=== PATIENT | female | born 1930 | race Two or more races ===

== ENCOUNTER 2016-10-25 18:32 | Emergency (ER) | payer OTHER ==
--- NOTE | 2016-10-25 18:35 | EDPHY ---
HPI/HX/ROS/PE/MDM Narrative: CHIEF COMPLAINT: Near syncope HPI: This patient is an 86-year-old female who presents to the Emergency Department via EMS after an episode of near syncope while eating dinner at 1630 today. The patient has been experiencing worsening cold-like symptoms over the past two days for which she was evaluated at [facility] at 1500 today; her primary care provider was suspicious of early pneumonia but did not start her on antibiotics. She took acetaminophen with codeine at 1600 today; apparently accidentally three times the prescribed normal dose. Following this, she began to feel overheated and dizzy. Family reports that she then appeared to slouch down in her seat and stopped responding to questions for 5-10 minutes, but she was breathing normally. At time of arrival, the patient reports feeling normal and is unsure why she is here. She denies any pertinent medical history; no cardiac disease or diabetes. REVIEW OF SYSTEMS: Aside from elements discussed in the HPI, a comprehensive 10-point review of systems was reviewed and is negative. PMH: Denies. SOCIAL HISTORY: Lives at home with family. Macedonian-speaking only. PHYSICAL EXAM: General:Patient is alert, in no acute distress. ENT:Eyes are normal to inspection. ENT inspection normal. Neck: Normal inspection. Full range of motion. Respiratory:No respiratory distress. Breath sounds normal bilaterally. Cardiovascular: Regular rate and rhythm. Strong peripheral pulses. Normal cap refill. Abdomen:The abdomen is nontender to palpation. There are no peritoneal signs. There are normal bowel sounds. Back: Normal to inspection. No tenderness to palpation. Skin: Normal color. No rash. Warm and dry. Extremities: Normal appearance. Full range of motion. Neuro: Oriented x3. Normal motor function. Normal sensory function. ED Course: 1833: Took EMS report at bedside. Vitals: BGL 134; normal sinus on monitor. History of weakness, flu-like symptoms over past 2-3 days. No additional medical history reported. 86-year-old female presents via EMS with apparent near syncope at 1630 today after the patient took an increased dose of 30mg acetaminophen with codeine. At time of arrival, she is asymptomatic. No significant findings on exam. I am most suspicious of an adverse reaction to the increased dosage of Tylenol with codeine. Plan for labs, EKG, and chest x-ray. EKG was ordered and interpreted by myself: normal sinus rhythm, rate 80; no ischemic changes. Please see [employer] system for official reading. Labs reviewed and are unremarkable. Troponin is negative. Chest x-ray is suggestive of possible early pneumonia in the left lower lobe. This is consistent with the primary care provider's diagnosis today. I discussed this with the patient's family as well as plan to treat with azithromycin. The patient has remained asymptomatic while in the ED and wishes to go home. She declines further testing. She will be discharged home in good condition with customary return precautions. MDM: This patient presents with near syncope which I think is likely secondary to taking too much codeine in the setting of recent illness and a hot trailer. There is no evidence of stroke, ACS or sepsis, and patient feels fine now. - Data Points Imaging Results: Imaging Impressions Chest X-Ray 10/25/16 18:35 Impression: 1. Interstitial infiltrate/pneumonia suspected left base. 2. Mild progression of compression fractures that appear to be at the T8 and L1 segment levels in this patient with history of osteoporosis. Findings discussed with Julien Amin MD at 20:54 hour, 10/25/2016. Imaging: Discussed imaging studies w/ call centre supervisor Radiologist (Possibly early pneumonia) Laboratory Results: Laboratory Results 10/25/16 18:57 10/25/16 18:57 10/25/16 10/25/16 18:57 18:57 WBC 8.79 10^3/uL 10^3/uL (3.80-9.50) RBC 4.16 10^6/uL L 10^6/uL (4.18-5.33) Hgb 14.4 g/dL g/dL (12.6-16.3) Hct 41.3 % % (38.0-47.0) MCV 99.3 fL fL (81.5-99.8) MCH 34.6 pg H pg (27.9-34.1) MCHC 34.9 g/dL g/dL (32.4-36.7) RDW 13.2 % % (11.5-15.2) Plt Count 250 10^3/uL 10^3/uL (150-400) MPV 8.7 fL fL (8.7-11.7) Neut % (Auto) 50.6 % % (39.3-74.2) Lymph % (Auto) 35.7 % % (15.0-45.0) [place] % (Auto) 5.7 % % (4.5-13.0) Eos % (Auto) 7.3 % % (0.6-7.6) Baso % (Auto) 0.2 % L % (0.3-1.7) Nucleat RBC Rel Count 0.0 % % (0.0-0.2) Absolute Neuts (auto) 4.45 10^3/uL 10^3/uL (1.70-6.50) Absolute Lymphs (auto) 3.14 10^3/uL H 10^3/uL (1.00-3.00) Absolute Monos (auto) 0.50 10^3/uL 10^3/uL (0.30-0.80) Absolute Eos (auto) 0.64 10^3/uL H 10^3/uL (0.03-0.40) Absolute Basos (auto) 0.02 10^3/uL 10^3/uL (0.02-0.10) Absolute Nucleated RBC 0.00 10^3/uL 10^3/uL (0-0.01) Immature Gran % 0.5 % % (0.0-1.1) Immature Gran # 0.04 10^3/uL 10^3/uL (0.00-0.10) Sodium 137 mEq/L mEq/L (134-144) Potassium 4.0 mEq/L mEq/L (3.5-5.2) Chloride 102 mEq/L mEq/L (97-110) Carbon Dioxide 23 mEq/l mEq/l (22-31) Anion Gap 12 mEq/L mEq/L (8-16) BUN 20 mg/dL mg/dL (7-23) Creatinine 0.8 mg/dL mg/dL (0.6-1.0) Estimated GFR > 60 Glucose 114 mg/dL H mg/dL (70-100) Calcium 9.7 mg/dL mg/dL (8.5-10.4) Troponin I < 0.012 ng/mL ng/mL (0-0.034) General Initial Vital Signs: Initial Vital Signs Temperature (C) 37 C 10/25/16 18:43 Heart Rate 79 10/25/16 18:43 Respiratory Rate 14 10/25/16 18:43 Blood Pressure 127/78 H 10/25/16 18:43 O2 Sat (%) 92 10/25/16 18:43 O2 Delivery Mode Room Air O2 (L/minute) 1 Allergies/Adverse Reactions: No Known Allergies Allergy (Unverified 10/25/16 18:43) Home Medications: Medication Instructions Recorded AZITHROMYCIN [Z-PACK] 250 mg PO DAILY #6 tab 10/25/16 Departure - Departure Disposition: Home, Routine, Self-Care Clinical Impression: Pneumonia Qualifiers: Pneumonia type: due to unspecified organism Laterality: left Lung location: lower lobe of lung Qualified Code(s): J18.1 - Lobar pneumonia, unspecified organism Medication reaction Qualifiers: Encounter type: initial encounter Qualified Code(s): T88.7XXA - Unspecified adverse effect of drug or medicament, initial encounter Condition: Good Instructions: Pneumonia (ED) Additional Instructions: 1. Take the full course of azithromycin as prescribed to treat pneumonia. 2. You may continue to take 10mg acetaminophen with codeine every 6 hours as prescribed; do not take more than this. 3. Follow-up with your primary care provider for reevaluation in 2-3 days. 4. Return to the Emergency Department with worsening cough, high fever, difficulty breathing, repeat episodes of fainting, or for other serious concerns. 1. [place] todo el tratamiento de azithromycin recetado para tratar neumonia. 2. Puede continuar tomando 10 mg de acetaminophen con codeine cada 6 horas a keshia se le receto; no tome mas de eso. 3. [place] jessica kamar de seguimiento con joel doctor en 2-3 alvarez. 4. Regrese a la mike de emergencia si empeora la tos, fiebre, dificultad para respirar, si tiene otro episodio de desmayo, u otras preocupaciones serias. Referrals: [facility],. [Clinic] - As per Instructions Prescriptions: AZITHROMYCIN [Z-PACK] 250 mg PO DAILY #6 tab Print Language: Macedonian Report Scribed for: Julien Amin Report Scribed by: Rebecca Chavez Date of Report: 10/25/16 Time of Report: 18:33 Physician Review and Approval Statement: Portions of this note were transcribed by an ED scribe. I personally performed the history, physical exam, and medical decision making; and confirm the accuracy of the information in the transcribed note.
[2016-10-25 19:00] LABS: % IMMATURE GRANULYOCYTES 0.5 % (0.0-1.1); ABSOLUTE IMMATURE GRANULOCYTES 0.04 10^3/uL (0.00-0.10); ADD DIFF? NO; ADD MORPH? NO; ADD SCAN? NO; ATYPICAL LYMPHOCYTE FLAG 20 (0-99); FRAGMENT RBC FLAG 0 (0-99); HEMATOCRIT 41.3 % (38.0-47.0); HEMOGLOBIN 14.4 g/dL (12.6-16.3); LEFT SHIFT FLG 0 (0-99); LIPEMIA HEMOLYSIS FLAG 90 (0-99); MEAN CELL HEMOGLOBIN 34.6 pg (27.9-34.1); MEAN CELL HEMOGLOBIN CONCENTR. 34.9 g/dL (32.4-36.7); MEAN CELL VOLUME 99.3 fL (81.5-99.8); MEAN PLATELET VOLUME 8.7 fL (8.7-11.7); PLATELET CLUMPS FLAG 20 (0-99); PLATELET COUNT 250 10^3/uL (150-400); RED BLOOD CELL COUNT 4.16 10^6/uL (4.18-5.33); RED CELL DISTRIBUTION WIDTH 13.2 % (11.5-15.2)
--- NOTE | 2016-10-25 19:02 | CPEKG ---
Heart Rate: 81 RR Interval: 741 P-R Interval: 168 QRSD Interval: 64 QT Interval: 356 QTC Interval: 414 P [place]: 18 QRS [place]: 4 T Wave [facility] [place]: 49 EKG Severity - NORMAL ECG - EKG Impression: SINUS RHYTHM Electronically Signed By: Richi Mckeon 25-Oct-2016 20:46:08
[2016-10-25 19:18] LABS: ANION GAP 12 mEq/L (8-16); CALCIUM 9.7 mg/dL (8.5-10.4); CARBON DIOXIDE 23 mEq/l (22-31); CHLORIDE 102 mEq/L (97-110); CREATININE 0.8 mg/dL (0.6-1.0); GLOMERULAR FILTRATION RATE > 60; GLUCOSE 114 mg/dL (70-100); SODIUM 137 mEq/L (134-144)
[2016-10-25 19:29] LABS: TROPONIN I < 0.012 ng/mL (0-0.034)
[2016-10-25 20:37] VITALS: TEMP 98.4
[2016-10-25 21:40] VITALS: BP 119/70; PULSE 84; RESP 20; O2SAT 92
== END 2016-10-25 21:29 | disposition home or self-care (01) ==
LOC: EDUNIT#
DX: J18.9 Pneumonia, unspecified organism (principal); T39.1X5A Adverse effect of 4-Aminophenol derivatives, initial encounter; T40.2X5A Adverse effect of other opioids, initial encounter

== ENCOUNTER 2018-03-02 11:14 | Inpatient (IN) | payer OTHER ==
--- NOTE | 2018-03-02 11:34 | EDPHY ---
H & P Stated Complaint: Slipped getting out of shower this am, hit head, R arm, spine pain Time Seen by Provider: 03/02/18 11:23 HPI/ROS: CHIEF COMPLAINT: Mechanical fall, headache, neck pain and back pain HISTORY OF PRESENT ILLNESS: The patient presents to the ED with headache, neck pain and diffuse midline back pain following a fall getting out of the shower today. The patient reportedly struck her occiput. There is no loss of consciousness. The patient is not anticoagulated. She reports 8/10 pain in her head, neck and spine. She denies any anterior chest pain, abdominal pain or lower extremity complaints. The patient denies any antecedent chest pain or palpitations. The patient denies any fever, cough or congestion. REVIEW OF SYSTEMS: A comprehensive 10 point review of systems is otherwise negative aside from elements mentioned in the history of present illness. 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 - Medical/Surgical History Hx Asthma: No Hx Chronic Respiratory Disease: No Hx Diabetes: No Hx Cardiac Disease: No Hx Renal Disease: No Hx Cirrhosis: No Hx Alcoholism: No Hx HIV/AIDS: No Hx Splenectomy or Spleen Trauma: No Other PMH: degenerative disc disease - Social History Smoking Status: Never smoked - Physical Exam Exam: General Appearance: Alert, no distress Head: Atraumatic, tenderness to palpation in the occiput Eyes: Pupils equal, round, reactive ENT, Mouth: No hemotympanum, no oral trauma Neck: Tenderness to palpation noted in the cervical spine diffusely Respiratory: No chest wall tender, no subcutaneous air, lungs clear bilaterally Cardiovascular: Regular rate and rhythm Abdomen: Abdomen is soft and nontender, pelvis stable Skin: No lacerations, No abrasion Back: Tenderness to palpation throughout the midline thoracolumbar spine Extremities: Nontender, full range of motion Neurological: A&Ox3, normal motor function, normal sensory exam Constitutional: Initial Vital Signs Temperature (C) 36.8 C 03/02/18 11:19 Heart Rate 84 03/02/18 11:19 Respiratory Rate 16 03/02/18 11:19 Blood Pressure 144/67 H 18 11:19 O2 Sat (%) 97 03/02/18 11:19 O2 Delivery Mode Room Air Allergies/Adverse Reactions: No Known Allergies Allergy (Verified 03/02/18 11:18) Home Medications: Medication Instructions Recorded KETOROLAC TROMETHAMINE 03/02/18 traMADol 03/02/18 Medical Decision Making - Diagnostics Imaging Results: Imaging Impressions Cervical Spine CT 03/02/18 11:32 Impression: 1. Age indeterminate mild compression fracture of the superior endplate of T2. 2. Multilevel degenerative change and spondyloses in the cervical spine. If there is persistent pain or neurologic deficit, consider MRI and/or flexion and extension views if clinically indicated. Findings discussed with Dr. Tanvir Sandhu on March 02, [address] 03/02/18 11:32 Impression: 1. 3 mm left temporal extra-axial hemorrhage, possibly subdural or epidural, without significant mass effect. 2. Atrophy with extensive white matter change most likely related to chronic microvascular ischemic gliosis. 3. Additional findings as above. Findings discussed with Dr. Tanvir Sandhu on March 02, 2018 at [address] 03/02/18 11:32 Impression: Old compression fracture of T9. No new fractures identified. Findings and recommendations discussed with Dr. Tanvir Sandhu at 1219 hours on March 02, 2018. Final report concurs with initial preliminary interpretation. Lumbar Spine CT 03/02/18 11:33 Impression: 1. Old compression deformity of L2. 2. Moderate canal stenosis at L3-L4 due to degenerative process. 3. Severe disk height loss at L4-L5, also stable. Findings and recommendations discussed with Dr. Tavnir Sandhu at 1217 hour, 03/02/2018. Final report concurs with initial preliminary interpretation. Chest x-ray one view: Images reviewed by myself. Impression: Negative for traumatic injury. Right shoulder x-ray: Images reviewed by myself. Negative for acute fracture dislocation ED Course/Re-evaluation: Patient presents to the ED with headache neck and back pain following a mechanical fall. She arrives and is neurologically intact. The patient was placed on a awake overnight monitor. She was taken for CT scans given her age and complaints of pain. CT scan of the head demonstrates a small subdural hematoma without significant mass effect. CT scan of the cervical spine demonstrates no evidence of an acute fracture CT scan of the thoracic and lumbar spine demonstrate chronic compression fractures. Consultation was made with Dr. Franco from trauma surgery who will admit the patient primarily. Dr. David from neurosurgery has also been consulted. Patient will be admitted to the intensive care unit. She was evaluated by the trauma surgeon in the emergency department at 1:15 p.m.. Additional database reviewed: CBC: Within normal limits Coag studies: Within normal limits Differential Diagnosis: Differential diagnosis considered includes intracranial hemorrhage, skull fracture, lumbar fracture, spinal cord injury, shoulder fracture, shoulder dislocation Critical Care Time: Critical care time exclusive of procedures and exclusive of the PA's time was 35 minutes, performed by myself, Tanvir Sandhu MD. Patient presents to the ED with complaints of an acute severe headache following a mechanical fall at home. She was noted to have subdural hematoma. 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 Consultation was made with Trauma surgery and Neurosurgery. Patient is admitted to the intensive care unit. Departure - [facility] Clinical Impression: Subdural hematoma Condition: Fair
[2018-03-02 13:09] LABS: PLATELET COUNT 200 10^3/uL (150-400)
--- NOTE | 2018-03-02 13:20 | PDGENHP ---
History and Physical - Chief Complaint Fall from standing height in bathtub - History of Present Illness 87-year-old Central African-speaking woman without significant medical problems who presents to the hospital after fall from standing height in the shower. She slipped and fell according to her family and herself. She did not lose consciousness. She had pain in her back, right arm and head. She took tramadol at home and her head pain went away. CT scan shows 3 mm left temporal subdural or epidural hematoma. Neurosurgery consult is pending. She currently has no complaints. X-rays are being done for full analysis of injuries. History Information - Allergies/Home Medication List Allergies/Adverse Reactions: No Known Allergies Allergy (Verified 03/02/18 11:18) Home Medications: KETOROLAC TROMETHAMINE 03/02/18 [Last Taken Unknown] traMADol 03/02/18 [Last Taken Unknown] I have personally reviewed and updated: medical history, surgical history - Surgical History Reports: no pertinent surgical hx - Social History Smoking Status: Never smoked Review of Systems Review of Systems: ROS: 10pt was reviewed & negative except for what was stated in HPI & below EENMT: Denies: ear pain, blurred vision, double vision Muscolosketal: Reports: back pain. Denies: neck pain Neurological: Denies: no symptoms Physical Exam Physical Exam: Alert oriented x3. Sclerae anicteric Pupils 4 mm equal wearing glasses. Vision intact No JVD no thyromegaly No bony deformities upper extremities lower extremities. No neurologic deficits cranial nerves 2-12 grossly intact No focal neurologic deficits it. Extraocular motion intact Equal director database strength bilateral upper extremities Good range of motion all 4 extremities with 5+ over 5+ muscle strength No chest pain Abdomen soft nontender nondistended No skin abnormalities no obvious abrasions Regular rate and rhythm Clear to auscultation Temp Pulse Resp BP Pulse Ox 36.8 C 76 18 146/74 H 94 03/02/18 11:19 03/02/18 12:46 03/02/18 12:46 03/02/18 12:46 03/02/18 12:46 Lab Data & Imaging Review 03/02/18 13:01 03/02/18 13:01 WBC 7.04 10^3/uL (3.80-9.50) 03/02/18 13:01 RBC 3.89 10^6/uL (4.18-5.33) L 03/02/18 13:01 Hgb 13.1 g/dL (12.6-16.3) 03/02/18 13:01 Hct 38.4 % (38.0-47.0) 03/02/18 13:01 MCV 98.7 fL (81.5-99.8) 03/02/18 13:01 MCH 33.7 pg (27.9-34.1) 03/02/18 13:01 MCHC 34.1 g/dL (32.4-36.7) 03/02/18 13:01 RDW 14.6 % (11.5-15.2) 03/02/18 13:01 Plt Count 200 10^3/uL (150-400) 03/02/18 13:01 MPV 8.6 fL (8.7-11.7) L 03/02/18 13:01 Neut % (Auto) 75.3 % (39.3-74.2) H 03/02/18 13:01 Lymph % (Auto) 16.1 % (15.0-45.0) 03/02/18 13:01 [place] % (Auto) 7.7 % (4.5-13.0) 03/02/18 13:01 Eos % (Auto) 0.4 % (0.6-7.6) L 03/02/18 13:01 Baso % (Auto) 0.1 % (0.3-1.7) L 03/02/18 13:01 Nucleat RBC Rel Count 0.0 % (0.0-0.2) 03/02/18 13:01 Absolute Neuts (auto) 5.30 10^3/uL (1.70-6.50) 03/02/18 13:01 Absolute Lymphs (auto) 1.13 10^3/uL (1.00-3.00) 03/02/18 13:01 Absolute Monos (auto) 0.54 10^3/uL (0.30-0.80) 03/02/18 13:01 Absolute Eos (auto) 0.03 10^3/uL (0.03-0.40) 03/02/18 13:01 Absolute Basos (auto) 0.01 10^3/uL (0.02-0.10) L 03/02/18 13:01 Absolute Nucleated RBC 0.00 10^3/uL (0-0.01) 03/02/18 13:01 Immature Gran % 0.4 % (0.0-1.1) 03/02/18 13:01 Immature Gran # 0.03 10^3/uL (0.00-0.10) 03/02/18 13:01 Imaging Review: Imaging Impressions Cervical Spine CT 03/02/18 11:32 Impression: 1. Age indeterminate mild compression fracture of the superior endplate of T2. 2. Multilevel degenerative change and spondyloses in the cervical spine. If there is persistent pain or neurologic deficit, consider MRI and/or flexion and extension views if clinically indicated. Findings discussed with Dr. Tanvir Sandhu on March 02, 2018 [address] 03/02/18 11:32 Impression: 1. 3 mm left temporal extra-axial hemorrhage, possibly subdural or epidural, without significant mass effect. 2. Atrophy with extensive white matter change most likely related to chronic microvascular ischemic gliosis. 3. Additional findings as above. Findings discussed with Dr. Tanvir Sandhu on March 02, 2018 at [address] 03/02/18 11:32 Impression: Old compression fracture of T9. No new fractures identified. Findings and recommendations discussed with Dr. Tanvir Sandhu at 1219 hours on March 02, 2018. Final report concurs with initial preliminary interpretation. Lumbar Spine CT 03/02/18 11:33 Impression: 1. Old compression deformity of L2. 2. Moderate canal stenosis at L3-L4 due to degenerative process. 3. Severe disk height loss at L4-L5, also stable. Findings and recommendations discussed with Dr. Tanvir Sandhu at 1217 hour, 03/02/2018. Final report concurs with initial preliminary interpretation. Chest x-ray and right shoulder x-ray with proximal humerus appear normal by my read Assessment & Plan Assessment: Subdural hematoma (Acute) Fall from standing height Elderly patient Plan: The admit to the hospital for observation Q 4 hr neuro checks unless increasing by neurosurgery. Defer to Neurosurgery for repeat CT scan of the head if necessary Oral pain medications for now. Avoid NSAIDs No DVT prophylaxis pharmacologically Medicine consult for geriatric nature of admission
[2018-03-02] MEDS ORDERED: NALOXONE HCL 0.4 MG/ML INJ IVP PRN (13:22)
[2018-03-02] MEDS ORDERED: ACETAMINOPHEN 325 MG TAB PO PRN (13:22)
[2018-03-02] MEDS ORDERED: HYDROCODONE/APAP 5/325 TAB PO PRN (13:22)
[2018-03-02 13:24] LABS: INR 0.97 (0.83-1.16); PROTIME(PATIENT) 13.1 SEC (12.0-15.0)
[2018-03-02] MEDS ORDERED: traZODone 50 MG TAB PO PRN (17:09)
[2018-03-02] MEDS ORDERED: ONDANSETRON 4 MG/2 ML VIAL IVP PRN (17:09)
--- NOTE | 2018-03-02 17:09 | PDCONSULT ---
Outpatient Program Coordinator Note: ASSESSMENT AND PLAN 87-year-old frail female with traumatic subdural hematoma secondary to a fall from standing height. # traumatic subdural hematoma # fall from standing tight # frailty # lumbar spinal stenosis # advanced age PLAN # serial neuro exams # consider repeat CT head in a.m. # check vitamin-D level with a.m. Labs # avoid NSAIDs # needs PT OT once cleared by Neurosurgery given fraility # counseled on importance of adequate caloric intake # Feeding - NPO # Analgesia APAP, # Sedation none, prn trazodone for sleep # bowel regimen # Thromboprophylaxis - SCDs, hep contraindicated due to SDH # Head of bed elevated # Ulcer prophylaxis - NA # Glucose SSI # Skin no skin breakdown # Delirium - delirium precautions Chief complaint fall HPI Comfort is a very pleasant and previously healthy 87-year-old Citizen [place]-speaking female who presented to the ED after a fall from standing height in the shower. She states this was a mechanical fall associated with sleeping. She denies hitting her head or losing consciousness. She rib complained of pain in her back her arm and her head. She took a dose of tramadol at home and her head pain went away. However she did have ongoing musculoskeletal pain. She denies prior falls. She denies regular use of nonsteroidal anti-inflammatory agents. She denies tobacco alcohol or other drug use. Allergies No known allergies Home medications tramadol, ketorolac, Past medical history back pain Surgical history none Family history no family history of subdural hematoma Review of systems Comprehensive 10 point review of systems is obtained is negative except as per HPI Exam Vitals Temperature 36.8 degrees, pulse 84, blood pressure 144/67, respiratory rate 16 97% room air GEN: NAD, up in chair, interactive NEURO: A&Ox3, CN 2-12 GI HEENT: PERRL, EOMI, MMM, OP clear NECK: supple, trachea midline CHEST normal shape, no pes excavatum CVS: rrr no m/r/g PULM: CTA B, no wheezes/rales/rhonchi ABD: soft, NT, ND, NABS EXT: R arm mildly tender to palpation, no swelling, no cyanosis, full ROM SKIN: warm, dry, intact, no rash PSYCH CAM negative, appropriate affect DATA I have personally reviewed the laboratory data and radiographic images. CT head with small subdural hematoma, no significant intraparenchymal lesion or encephalomalacia LABS Reviewed. Pertinent for normal platelets and coags IMAGING The personally reviewed the radiographic images as well as the formal radiologist reads.
[2018-03-02] MEDS: SENNOSIDES 17.6 MG/10 ML UDL PO SCH (17:19)
--- NOTE | 2018-03-02 20:46 | GCON ---
DATE OF CONSULTATION: 03/02/2018 REASON FOR CONSULTATION: Left temporal subdural hematoma, status post fall. HOSPITAL COURSE/HISTORY/MAJOR MEDICAL FINDINGS: The patient is an 87-year-old female who is accompanied by her daughter and their family in the emergency room today. Her daughter does most of the translating for her mother. They state that she had a fall from standing height while in the shower. She did not lose consciousness at that time. She was having some back, arm, and head pain and was brought to the emergency room for further evaluation. She normally has low back pain and wears a brace, and this has been chronic for some time. She does take tramadol for this. She underwent a CT scan, which demonstrated a 3 mm left temporal subdural hematoma. The patient does not take any blood thinners. She does not take any vitamins. She denies any headache now, any nausea, vomiting, dizziness. REVIEW OF SYSTEMS: Review of systems is negative other than what is stated in the HPI. Please see pertinent negatives and pertinent positives. PAST MEDICAL HISTORY: Significant for low back pain. She denies any other past medical history. MEDICATIONS: Home medications include ketorolac tromethamine and tramadol. PAST SURGICAL HISTORY: Patient denies any past surgical history. SOCIAL HISTORY: Patient has never smoked. She does not drink any alcohol or use illicit drugs. She does live independently, but has her family checks on her frequently. FAMILY HISTORY: She does have a son who had a prior heart attack. ALLERGIES: No known drug allergies. PHYSICAL EXAM: VITALS: BP is 151/66, heart rate is 75, respiratory rate 16 on room air. Temperature is 36.5. GENERAL: The patient is in no acute distress. She is alert and oriented x3 and answers all questions appropriately. Affect appropriate to given situation. NEUROLOGIC: Cranial nerves 2-12 grossly intact. EOMI and PERRLA. The patient is 5/5 and equal in her bilateral upper and bilateral lower extremities, including her deltoids, triceps, biceps, wrist flexors, extensors, interossei, intrinsic licensed nurse practitioner, iliopsoas, hamstrings, quadriceps, plantar flexion, dorsiflexion, EHL. DIAGNOSTIC REVIEW: Patient underwent a head CT which demonstrated a 3 mm left temporal subdural hematoma. ASSESSMENT AND PLAN: The patient is an 87-year-old female who presented to [facility] emergency room status post ground-level fall in the shower. She has evidence of a 3 mm left temporal subdural hematoma and is clinically stable. We will admit to SCU to monitor with neuro checks. She is okay to have a regular diet at this time. We will repeat her head CT in the morning. Would have her avoid any blood thinners, and will have PT/OT/SHALLOT CLEANER eval. The patient was seen by Dr Masterson at the time of this consultation in the ER. /[id number]/MODL MTDD
--- NOTE | 2018-03-03 08:35 | SOAPPROG ---
SOAP Progress Note Assessment/Plan: Assessment: 87 yo F with very small left temporal SDH after fall Plan: neuro: stable and doing well repeat CT 03/03 with almost complete resolution of SDH PT/OT/ST no need for keppra ok to dc home with family follow up with Dr Masterson in 3 weeks please call with neuro changes discussed with Dr David 03/03/18 08:33 Subjective: no headaches, no N/V. Objective: Vital Signs Temp Pulse Resp BP Pulse Ox 36.9 C 80 15 136/71 H 91 L 03/03/18 07:58 03/03/18 07:58 03/03/18 07:58 03/03/18 07:58 03/03/18 07:58 Laboratory Results 03/02/18 13:01 03/02/18 13:01 03/02/18 03/03/18 03/04/18 05:59 05:59 04:59 Intake Total 500 Balance 500 PT 13.1 SEC (12.0-15.0) 03/02/18 13:01 INR 0.97 (0.83-1.16) 03/02/18 13:01 Awake, alert, oriented to name/place, confused to month which is normal for her , +FC PERRL, EOMI, no facial droop 5/5 + light touch ICD10 Worksheet Patient Problems: Problems Problem Status Onset Subdural hematoma Acute
[2018-03-03] MEDS: SENNOSIDES 17.6 MG/10 ML UDL PO SCH (09:17)
[2018-03-03] MEDS ORDERED: traMADol 50 MG TAB PO PRN (09:27)
[2018-03-03] MEDS ORDERED: IBUPROFEN 200 MG TAB PO PRN (09:31)
--- NOTE | 2018-03-03 09:35 | TRAUMAPNT ---
Trauma Tertiary Progress Note - Problem/Surgery Performed (1) Fall in bathtub Assessment/Plan: mechanism of injury Qualifiers: Encounter type: initial encounter Qualified Code(s): W18.2XXA - Fall in ( into) shower or empty bathtub, initial encounter (2) Compression fx, thoracic spine Assessment/Plan: T2 age indeterminate, T9 likely old associated scoliosis will evaluate with MRI thoracic spine Qualifiers: Encounter type: initial encounter (3) Subdural hematoma Assessment/Plan: resolving on follow up CT/no neurologic sequlae thus far Assessment/Plan: s/p fall in bathtub with CHI/SDH, possible new thoracic spine fx T2 Plan: MRI thoracic spine, PT/OT/ST Subjective: awake and alert/sitting up in a chair at the bedside, c/o HOOKER and upper back pain , right upper arm pain patients daughter in attendance Objective: Vital Signs Temp Pulse Resp BP Pulse Ox 36.9 C 80 15 136/71 H 91 L 03/03/18 07:58 03/03/18 07:58 03/03/18 07:58 03/03/18 07:58 03/03/18 07:58 Laboratory Results 03/02/18 13:01 03/02/18 13:01 03/02/18 03/03/18 03/04/18 05:59 05:59 04:59 Intake Total 500 Balance 500 PT 13.1 SEC (12.0-15.0) 03/02/18 13:01 INR 0.97 (0.83-1.16) 03/02/18 13:01 - C-Spine Clearance Cervical Spine Cleared: Yes Provider who Cleared Cervical Spine: Joan Physical Exam - Physical Exam General Appearance: thin, other (frail appearing elderly female in NAD) EENT: PERRL/EOMI, normal ENT inspection, photophobia, other (tender right parietal scalp) Neck: limited range of motion, other (tender upper thoracic spine with significant scoliosis) Respiratory: chest non-tender, lungs clear, normal breath sounds Cardiac/Chest: regular rate, rhythm Abdomen: normal bowel sounds, non-tender, soft Pelvic Exam: deferred Rectal: deferred Back: Other Extremities: normal range of motion, other (tender right shoulder/upper arm) Neuro/Psych: no motor/sensory deficits, alert, normal mood/affect, oriented x 3 , other (normally walks with a walker) Time Spent w/Patient (minutes): 25
--- NOTE | 2018-03-03 13:13 | PDINTPN ---
Ios Developer Progress Note Assessment/Plan: ASSESSMENT AND PLAN 87-year-old frail female with traumatic subdural hematoma secondary to a fall from standing height. Clinically improved # traumatic subdural hematoma, nearly resolved on serial imaging # fall from standing tight # frailty # lumbar spinal stenosis # Possible T2 fracture # advanced age PLAN # MRI spine to evaluate thoracic spinal pathology # continue PTOT # avoid NSAIDs # needs PT OT once cleared by Neurosurgery given fraility # counseled on importance of adequate caloric intake # Feeding - NPO # Analgesia APAP, # Sedation none, prn trazodone for sleep # bowel regimen # Thromboprophylaxis - SCDs, hep contraindicated due to SDH # Head of bed elevated # Ulcer prophylaxis - NA # Glucose SSI # Skin no skin breakdown # Delirium - delirium precautions # dispo MRI Subjective: Subj and ROS Patient did well overnight, still complained of pain in shoulders and back. Per trauma surgeon, possible new fracture in T2 on plain films. Ordered MRI to evaluate. Complains of mild head pain, denies fevers chills chest pain shortness of breath cough leg swelling Objective: Vital Signs Temp Pulse Resp BP Pulse Ox 36.9 C 91 12 139/69 H 91 L 03/03/18 07:58 03/03/18 12:00 03/03/18 12:00 03/03/18 12:00 03/03/18 12:00 Laboratory Results 03/02/18 13:01 03/02/18 13:01 03/02/18 03/03/18 03/04/18 05:59 05:59 04:59 Intake Total 500 Balance 500 PT 13.1 SEC (12.0-15.0) 03/02/18 13:01 INR 0.97 (0.83-1.16) 03/02/18 13:01 I reviewed and interpreted patient's repeat CT head this AM. Repeat imaging with nearly resolved subdural hematoma. No new lesions. Physical Exam - Physical Exam General Appearance: alert EENT: PERRL/EOMI, normal ENT inspection Neck: other (Mild tenderness palpation over trapezius) Respiratory: chest non-tender, lungs clear Cardiac/Chest: normal peripheral pulses, regular rate, rhythm Abdomen: non-tender, soft Skin: normal color, warm/dry, No cyanosis, No diaphoresis Extremities: normal range of motion, non-tender Neuro/Psych: no motor/sensory deficits, alert, normal mood/affect ICD10 Worksheet Patient Problems: Problems Problem Status Onset Compression fx, thoracic spine Acute Fall in bathtub Acute Subdural hematoma Acute
--- NOTE | 2018-03-03 14:35 | ASMTCMCOM ---
CM Note CM Note Notes: Patient admitted after falling in shower; small SDH and T2 fracture noted on imaging. Patient lives with her daughter and son. I spoke with them about a wheelchair; patient's PCP ordered one, but the family has had difficulty in obtaining it. I spoke with [facility] in [place] who says that they will follow up with patient's Treva on Monday 03/05. I offered to give the family loan servicing officer information but they declined. Case Management available for any other needs. Date Signed: 03/03/2018 02:34 PM Electronically Signed By:Palmira Cole RN
--- NOTE | 2018-03-03 20:22 | SOAPPROG ---
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 Patient and family have requested discharge after brace fitting Durga Hall MD, FACS
[2018-03-03 23:36] VITALS: BP 124/74
--- NOTE | 2018-03-04 08:55 | PDMN ---
Medical Necessity Medical necessity: Change to IP, as of 03/03/18, per MD & MCG - ( Musculoskeletal Disease); los >2 mn for ongoing management of acute T2 fx & subdural hematoma s/p fall; requiring further monitoring, brace fitting & therapies; comorbid advanced age, lumbar spinal stenosis, old T9 & T12 fxs
--- NOTE | 2018-03-07 19:32 | PDDCSUM ---
Discharge Summary Discharge Summary: #[id number] SARAH Hall MD, FACS
--- NOTE | 2018-03-08 06:59 | GDS ---
DISCHARGE DIAGNOSES: 1. Status post fall. 2. Left temporal subdural hematoma. 3. T2 compression fracture. 4. Remote compression fractures of T9, T12 and L2. 5. Indeterminate 10 mm marrow lesion on the left side of T7 vertebral body. 6. Multiple hepatic cysts. HOSPITAL COURSE: For details of admission history and physical, please see dictated summary. Briefl y, the patient is an 87-year-old female who fell down at home with loss of consciousness. She was br ought to the hospital for evaluation and was found to have on CT a small subdural hematoma in the lef t temporal region. She was seen by Neurosurgery, admitted to the trauma service and on tertiary surv ey the day after admission, she was noted to have tenderness in the upper thoracic spine associated w ith significant scoliosis. Her initial thoracic spine CT showed an age indeterminate fracture at T9, and she had been previously noted on her cervical spine CT to have a T2 compression fracture. MRI o f the thoracic spine showed the T2 fracture to be acute or subacute, and the other compression fractu res to be old. The patient was neurologically intact. She was placed in a thoracic brace and transf erred from the intensive care unit to med/surg. The patient and her family requested discharge short ly before midnight on 03/03/2018. As she had been cleared by Neurosurgery and the Trauma Service, I discharged her to home under the care of her daughter whom she lives with. She will follow up with Kameron Masterson in the Neurosurgical Clinic for followup. DISCHARGE MEDICATIONS: Tylenol 650 mg p.o. q.4 hours p.r.n., calcium carbonate 500 mg p.o. daily, an d Ordegan 02/22 (a combination of tramadol and ketorolac) 1 p.o. daily. This is a nonformulary medic ation that she buys in [place]. CONDITION AT TIME OF DISCHARGE: Satisfactory. Copy requested to: Dr. aMsterson /[id number]/MODL
== END 2018-03-04 00:10 | disposition home or self-care (01) | DRG 86 ==
LOC: INTOOBSV 12:36 → F2N 14:09 → F3N 03-03 17:15 → OBSVTOIN 03-03 20:50
PROVIDERS: ADMIT Surgery; ATTEND Surgery
DX: S06.5X0A Traumatic subdural hemorrhage without loss of consciousness, initial encounter (principal); S22.020A Wedge compression fracture of second thoracic vertebra, initial encounter for closed fracture; W18.2XXA Fall in (into) shower or empty bathtub, initial encounter; Y93.E1 Activity, personal bathing and showering; Y92.012 Bathroom of single-family (private) house as the place of occurrence of the external cause; M84.88 Other disorders of continuity of bone, other site; K76.89 Other specified diseases of liver
CPT/HCPCS: 92523-GN; 97161-GP; 97165-GO; 97530-GP; G0378; G8978-GP-CI; G8979-GP-CI; G8987-GO-CJ; G8988-GO-CJ; G9165-GN-CI; G9166-GN-CI; G9167-GN-CI

== ENCOUNTER 2018-06-25 09:05 | Emergency (ER) | payer OTHER ==
[2018-06-25] MEDS ORDERED: NS 500 ML IV ONE (09:47)
--- NOTE | 2018-06-25 09:55 | EDPHY ---
General - History Smoking Status: Never smoked Time Seen by Provider: 06/25/18 09:19 Narrative: CLINICAL IMPRESSION: Resolved left leg pain, weakness ASSESSMENT/PLAN: 87-year-old female with a known medical history of hypertension, osteoporosis and severe lumbosacral spinal stenosis presents to the emergency department with reports of bilateral leg weakness, mild confusion, and increased left leg pain today. Patient's family requested full workup. EKG shows poor R-wave progress and, normal sinus rhythm with no acute ST or T-wave changes, unchanged from prior, reviewed with Dr. Rodriguez. Troponin negative. Chest x-ray without acute cardiopulmonary changes. CT head with age-related degenerative changes but no acute intracranial hemorrhage or other abnormality. Urine studies show no evidence of UTI. Remainder of lab work reassuring with no anemia, leukocytosis, renal insufficiency, or electrolyte imbalance. No trauma to indicate emergent x-rays. Patient had a lumbosacral MRI in December of last year showing severe lumbosacral spinal stenosis. She received DAFNE through interventional radiology in late December and had been doing well since then. She is noncompliant with Lyrica and bisphosphonate therapy. We do not have an interventional radiologist available to perform DAFNE in the emergency department. On reassessment, patient reported she was pain-free and was able to get up to the bedside commode without difficulty. She does not wish to be admitted. I have given her a short course of prednisone and refilled Lyrica. I referred her to Neurosurgery. All questions answered. Patient's daughter interpreted workup in Lithuanian for the patient. Warning signs for return to ED sooner outlined and discharge. DIFFERENTIAL DX: Differential includes but not limited to acute on chronic leg pain secondary to spinal stenosis, DVT, infection, UTI, electrolyte imbalance, dehydration, CVA /TIA ED PROCEDURES: See lab and/or imaging results below ED COURSE: 9:50 a.m.: Patient seen and assessed by myself. Long discussion with family. They would like to have full workup given that the patient is seemingly more confused and was complaining of bilateral leg weakness yesterday. Plan: IV established, EKG, troponin, labs, CT head, ultrasound left leg, cath UA. If workup is essentially normal, family would like to see if patient could have IR DAFNE placed in the lumbar spinous patient usually finds immediate relief from this and can avoid hospitalization. 10:20 a.m.: Case discussed with Dr. Howard raymundo From Radiology. CT shows chronic age-related white matter changes with no acute abnormality. 12:50 P.M.: No abnormal findings on EKG, cardiac enzymes, x-rays, ultrasound, lab evaluation. Patient reassessed. She is now pain free. She did not receive any analgesics from the ED. Does not wish to be admitted. Will place charged home with prednisone, Lyrica and neurosurgery follow-up. CHIEF COMPLAINT: Weakness, confusion, leg pain HPI: This is an 87-year-old Lithuanian-speaking only female with a past medical history of hypertension, osteoporosis, and severe lumbosacral spinal stenosis who presents to the emergency department with her family members. They are providing the majority of the history. They report yesterday the patient was complaining of bilateral leg weakness stating "that her legs would not hold her up or work for her". She has severe back pain and leg pain that was treated with DAFNE in December of last year during a hospital admission here and has been doing well since that time. She normally uses a walker to ambulate but otherwise sits mostly in her wheelchair. No reported trauma or fall. Patient' s daughter reports she was talking about a mother in law recently. No slurred speech, word-finding difficulties, facial droop, arm weakness. No complaints of headache, dizziness, vertigo, nausea or vomiting. Apparently yesterday she was complaining of a "bellyache" but ate normally throughout the day. No history of UTIs. She has been afebrile. No recent URI symptoms, cough or shortness of breath. No history of DVTs. This morning the daughter received a call from home stating from another family member that her mom was complaining of left leg pain. It is unclear if this pain is due to her back or if there is something else going on. The family would like a full evaluation. She is not currently taking anything regularly for her back pain and does not wish to have surgery. She was prescribed Lyrica in the past but her daughter reports she is not taking this. She has never taken a steroid taper. Hospitalization reports indicate she was taking a bisphosphonate for osteoporosis although this is unclear. She was advised to come to the ED by the clinic PAST MEDICAL HISTORY: Hypertension, osteoporosis, severe lumbosacral spinal stenosis See nurse/triage notes for additional history if applicable Pertinent Past Surgical History: None reported Family History: Noncontributory Social History: Lives with family at home REVIEW OF SYSTEMS: All other systems negative Constitutional: No fever, no chills, appetite change. Eyes: No discharge, vision change ENT: No sore throat, congestion, ear pain. Cardiovascular: No chest pain, no palpitations. Respiratory: No cough, no shortness of breath. Gastrointestinal: No abdominal pain, no vomiting, diarrhea. Genitourinary: No hematuria, dysuria, flank pain, pelvic pain Musculoskeletal: No back pain, joint swelling, positive for left leg joint pain , myalgias. Skin: No rashes, color change. Neurological: No headache, positive for confusion dizziness, positive for weakness. PHYSICAL EXAM: General Appearance: Alert, oriented, appropriate, frail, elderly, cooperative, NAD, well hydrated, non-toxic appearing, laying comfortably in the bed, hypertensive no hypoxia. HEENT: TMs are clear bilaterally no perforation or FB, no injection, no evidence of serous or mucopurulent otitis. Oropharynx clear is no erythema or exudates, no tonsillar hypertrophy or asymmetry. Dentition without abnormality. Eyes: PERRLA, no acute vision change, nystagmus, swelling, discharge, pain or photosensitivity. Conjunctiva pink, no pallor or injection Neck: Supple, nontender, no lymphadenopathy, no midline pain, FROM, no meningismus. Respiratory: There are no retractions, lungs are clear to auscultation. Cardiac: Regular rate and rhythm, no murmurs or gallops. Gastrointestinal: Abdomen is soft, nontender, bowel sounds normal, no masses/ hernia, no rigidity, guarding or focal peritoneal findings. Neurological: Alert and oriented x 3, CN 2-12 grossly intact, weakness to left leg with inability to hold extension above the bed for more than 5 sec secondary to pain and weakness. Reproducible pain to palpation of the left calf with no associated erythema or warmth. Upper extremities with symmetric strength and movement. Speech is clear. DTR's intact, normal sensation and strength Skin: Warm, dry, no rashes, no nodules on palpation. Psychiatric: Patient is oriented X 3, there is no agitation. MEDICAL DECISION MAKING: Patient was seen independently. Secondary supervising physician at time of evaluation was Dr. Rodriguez. Diagnosis: Resolved left leg pain, weakness, mild confusion . New, requires workup Summary: See Assessment and Plan for summary of ED visit Clinical lab tests: ordered / reviewed. Independent visualization of images, tracing, or specimens: Yes. Decision to obtain medical records or history from someone other than the patient: Patient's daughter Review / Summarize previous medical records: Reviewed last admission notes Discussed patient with another provider: Radiology Patient Progress: Improved, stable for discharge. (Ramakrishna Mendiola) Discussion: The patient was evaluated and managed by the Physician Field Consultant. My co- signature indicates that I have reviewed this chart and I agree with the findings and plan of care as documented. I am the secondary supervising physician. (Daniela oRdriguez) - Objective Vital Signs: Initial Vital Signs Temperature (C) 37.1 C 06/25/18 09:09 Heart Rate 80 06/25/18 09:09 Respiratory Rate 16 06/25/18 09:09 Blood Pressure 152/79 H 06/25/18 09:09 O2 Sat (%) 96 06/25/18 09:09 O2 Delivery Mode Room Air Allergies/Adverse Reactions: No Known Allergies Allergy (Verified 06/25/18 09:08) Home Medications: Medication Instructions Recorded Calcium Carbonate [Oyster Shell 500 mg PO DAILY 03/02/18 Calcium 500 mg (*)] Pregabalin [LYRICA] 200 mg PO BID #10 cap 06/25/18 predniSONE [Prednisone] 40 mg PO DAILY #20 tablet 06/25/18 Laboratory Results: Laboratory Results 06/25/18 09:55 06/25/18 09:55 Medications Given: Discontinued Medications Sodium Chloride (Ns) 500 mls @ 1,000 mls/hr IV EDNOW ONE PRN Reason: Protocol Stop: 06/25/18 10:16 Last Admin: 06/25/18 10:53 Dose: 500 mls Point of Care Test Results: Chemistry 06/25/18 10:02 POC Troponin I 0.01 ng/mL ng/mL (0.00-0.08) Departure - Departure Disposition: Home, Routine, Self-Care Clinical Impression: Leg pain, left, Weakness Condition: Good Instructions: Leg Pain (ED) Additional Instructions: DISCHARGE INSTRUCTIONS FROM YOUR DOCTOR Thank you for visiting our emergency department today. You were treated by a physician emergency medicine physician assistant today and your case was reviewed with our ED Attending physician. Please keep in mind that discharge from the emergency department does not mean that there is nothing wrong - it simply means that we have not identified an emergency condition that requires further evaluation or treatment in the hospital. You should always plan to follow up with primary care for re- evaluation of your condition in the next 2-3 days. If you have been referred to a specialist, please call as soon as possible (today or tomorrow) to schedule your follow up appointment at the appropriate time. DIAGNOSTIC WORKUP INCLUDED URINE, EKG, CARDIAC ENZYMES, LAB WORK A CHEST X-RAY , AND ULTRASOUND OF THE LEG. EVERYTHING IS REASSURING WITH NO SIGNIFICANT ABNORMAL FINDINGS IDENTIFIED. CT SCAN OF THE HEAD WAS ALSO NORMAL. P RESOLVED IN THE ED. WE RECOMMEND FOLLOW-UP WITH NEUROSURGERY TO DISCUSS OUTPATIENT EPIDURAL STEROID INJECTIONS. A PRESCRIPTION FOR PREDNISONE AND LYRICA WAS PROVIDED TO USE IF NEEDED. FOLLOW UP WITH A PRIMARY CARE DOCTOR IN 24-48 HOURS. RETURN TO THE EMERGENCY ROOM FOR WORSENING SYMPTOMS, INCREASED PAIN, INABILITY TO WALK, FEVERS OR ANY OTHER CONCERNS People present with illnesses and injuries in different ways, and it is always possible that we have missed something. You may always return for re-evaluation if symptoms worsen or if they are not improving or if you develop new/different symptoms. Again, thank you for choosing our emergency department. We hope that you feel better. Referrals: NONE *PRIMARY CARE P,. [Primary Care Provider] - As per Instructions Cris Ayers NP [Certified Nurse Practioner] - 2-3 days, call for appt. Prescriptions: predniSONE [Prednisone] 40 mg PO DAILY #20 tablet Pregabalin [LYRICA] 200 mg PO BID #10 cap
[2018-06-25 10:11] LABS: PLATELET COUNT 192 10^3/uL (150-400)
[2018-06-25 11:39] VITALS: BP 148/88
--- NOTE | 2018-06-26 16:52 | CPEKG ---
Test Reason : OPEN Blood Pressure : / mmHG Vent. Rate : 073 BPM Atrial Rate : 073 BPM P-R Int : 155 ms QRS Dur : 069 ms QT Int : 367 ms P-R-T Axes : 015 008 043 degrees QTc Int : 405 ms Sinus rhythm Abnormal R-wave progression, early transition Confirmed by Daniela Rodriguez ([id number]) on 06/26/2018 4:51:43 PM Referred By: Daniela Rodriguez Confirmed By:Daniela Rodriguez
== END 2018-06-25 12:15 | disposition home or self-care (01) ==
DX: M79.605 Pain in left leg (principal); I10 Essential (primary) hypertension
CPT/HCPCS: 84484-ER

== ENCOUNTER 2018-07-10 09:44 | Observation (INO) | payer OTHER ==
[2018-07-10 10:19] LABS: PLATELET COUNT 204 10^3/uL (150-400)
--- NOTE | 2018-07-10 10:19 | EDPHY ---
H & P Time Seen by Provider: 07/10/18 09:55 HPI/ROS: Chief complaint. Chest pain HPI. 88-year-old female with chest pain that either yesterday or this morning. Patient and family are somewhat unsure. It is described as central and sharp with radiation to her low back. She has chronic low back pain. She has never had chest pain before. She had shortness of breath earlier. No change in her discomfort with breathing, exertion, position. Low back pain is the same. She wears a brace when she is in her car. No fall or injury. Same location and character pain. No radiation to legs or leg weakness. No bowel or bladder symptoms. No fever cough ROS 10 systems were reviewed and negative with the exception of the elements mentioned in the history of present illness Past Medical/Surgical History: Hypertension, osteoporosis Social History: , nonsmoker, no alcohol Smoking Status: Never smoked Physical Exam: General Appearance: Alert well-developed female mild distress. Vital signs are stable Eyes: Pupils equal and round no pallor or injection. ENT, Mouth: Mucous membranes are moist. Respiratory: There are no retractions, lungs are clear to auscultation. Cardiovascular: Regular rate and rhythm. Gastrointestinal: Abdomen is soft and nontender, no masses, bowel sounds normal. Neurological: Awake and alert, sensory and motor exams grossly normal. Skin: Warm and dry, no rashes. Musculoskeletal: Neck is supple nontender. Extremities symmetrical, full range of motion. Psychiatric: Patient is oriented X 3, there is no agitation. Constitutional: Initial Vital Signs Temperature (C) 37.0 C 07/10/18 09:50 Heart Rate 84 07/10/18 09:50 Respiratory Rate 18 07/10/18 09:50 Blood Pressure 151/85 H 07/10/18 09:50 O2 Sat (%) 94 07/10/18 09:50 O2 Delivery Mode Room Air Allergies/Adverse Reactions: No Known Allergies Allergy (Verified 07/10/18 09:50) Home Medications: Medication Instructions Recorded Acetaminophen [Tylenol 325mg (*)] 650 mg PO Q8HRS PRN 07/10/18 Ascorbic Acid [Vitamin C 500 mg 500 mg PO DAILY 07/10/18 (*)] Estrogens,Conjugated [Premarin 0.5 nia VG AD 07/10/18 Vaginal (*)] Ketorolaco 10mg 10 mg PO DAILY PRN 07/10/18 clonazePAM [klonoPIN (*)] 1 mg PO HS 07/10/18 predniSONE [Prednisone] 40 mg PO DAILY PRN 07/10/18 traMADol [Ultram 50 mg (*)] 50 - 100 mg PO Q4-6PRN PRN 07/10/18 Medical Decision Making - Diagnostics EKG Interpretation: EKG interpreted by me shows normal sinus rhythm normal interval. Left axis deviation. QRS is normal there is no significant ST elevation or depression. No arrhythmia. The rate is 70 Imaging Results: Imaging Impressions Chest X-Ray 07/10/18 10:01 Impression: No acute process. Chronic airways disease unchanged. Procedures: IV normal saline, ED Course/Re-evaluation: On re-evaluation patient remained stable. She continues to have some left anterior chest discomfort. Through the lang interpreter the patient and I discussed imaging and lab results. We discussed treatment plan including recommendation for admission. She expresses understanding and agreement seismic interpreter is Dia Differential Diagnosis: I considered acute coronary syndrome, pneumonia, pneumothorax - Data Points Laboratory Results: Laboratory Results 07/10/18 10:00 07/10/18 10:00 07/10/18 07/10/18 07/10/18 10:08 10:00 10:00 WBC RBC Hgb Hct MCV MCH MCHC RDW Plt Count MPV Neut % (Auto) Lymph % (Auto) Briscoe % (Auto) Eos % (Auto) Baso % (Auto) Nucleat RBC Rel Count Absolute Neuts (auto) Absolute Lymphs (auto) Absolute Monos (auto) Absolute Eos (auto) Absolute Basos (auto) Absolute Nucleated RBC Immature Gran % Immature Gran # PT INR APTT Sodium 132 mEq/L L mEq/L (135-145) Potassium 5.0 mEq/L mEq/L (3.5-5.2) Chloride 105 mEq/L mEq/L (97-110) Carbon Dioxide 22 mEq/l mEq/l (22-31) Anion Gap 5 mEq/L L mEq/L (6-14) BUN 27 mg/dL H mg/dL (7-23) Creatinine 0.7 mg/dL mg/dL (0.6-1.0) Estimated GFR > 60 Glucose 88 mg/dL mg/dL (70-100) Calcium 8.3 mg/dL L mg/dL (8.5-10.4) POC Troponin I 0.01 ng/mL ng/mL (0.00-0.08) Troponin I < 0.012 ng/mL ng/mL (0.000-0.034) 07/10/18 07/10/18 10:00 10:00 WBC 7.86 10^3/uL 10^3/uL (3.80-9.50) RBC 3.91 10^6/uL L 10^6/uL (4.18-5.33) Hgb 13.2 g/dL g/dL (12.6-16.3) Hct 39.1 % % (38.0-47.0) MCV 100.0 fL H fL (81.5-99.8) MCH 33.8 pg pg (27.9-34.1) MCHC 33.8 g/dL g/dL (32.4-36.7) RDW 13.2 % % (11.5-15.2) Plt Count 204 10^3/uL 10^3/uL (150-400) MPV 8.5 fL L fL (8.7-11.7) Neut % (Auto) 58.1 % % (39.3-74.2) Lymph % (Auto) 31.8 % % (15.0-45.0) Briscoe % (Auto) 8.0 % % (4.5-13.0) Eos % (Auto) 0.8 % % (0.6-7.6) Baso % (Auto) 0.3 % % (0.3-1.7) Nucleat RBC Rel Count 0.0 % % (0.0-0.2) Absolute Neuts (auto) 4.57 10^3/uL 10^3/uL (1.70-6.50) Absolute Lymphs (auto) 2.50 10^3/uL 10^3/uL (1.00-3.00) Absolute Monos (auto) 0.63 10^3/uL 10^3/uL (0.30-0.80) Absolute Eos (auto) 0.06 10^3/uL 10^3/uL (0.03-0.40) Absolute Basos (auto) 0.02 10^3/uL 10^3/uL (0.02-0.10) Absolute Nucleated RBC 0.00 10^3/uL 10^3/uL (0-0.01) Immature Gran % 1.0 % % (0.0-1.1) Immature Gran # 0.08 10^3/uL 10^3/uL (0.00-0.10) PT 11.5 SEC L SEC (12.0-15.0) INR 0.87 (0.83-1.16) APTT 24.4 SEC SEC (23.0-38.0) Sodium Potassium Chloride Carbon Dioxide Anion Gap BUN Creatinine Estimated GFR Glucose Calcium POC Troponin I Troponin I Point of Care Test Results: Chemistry 07/10/18 10:08 POC Troponin I 0.01 ng/mL ng/mL (0.00-0.08) Departure - Departure Disposition: [facility] Inpatient Acute Clinical Impression: Chest pain Qualifiers: Chest pain type: unspecified Qualified Code(s): R07.9 - Chest pain, unspecified Condition: Fair
[2018-07-10 10:41] LABS: INR 0.87 (0.83-1.16); PROTIME(PATIENT) 11.5 SEC (12.0-15.0)
[2018-07-10] MEDS ORDERED: ONDANSETRON DISINTEGRATING 4 MG TAB PO PRN (11:39)
[2018-07-10] MEDS ORDERED: ACETAMINOPHEN 325 MG TAB PO PRN (11:39)
[2018-07-10] MEDS ORDERED: ONDANSETRON 4 MG/2 ML VIAL IVP PRN (11:39)
[2018-07-10] MEDS ORDERED: ASPIRIN 325 MG TAB PO ONE (15:08)
--- NOTE | 2018-07-10 15:10 | CPEKG ---
Test Reason : OPEN Blood Pressure : / mmHG Vent. Rate : 079 BPM Atrial Rate : 078 BPM P-R Int : 144 ms QRS Dur : 066 ms QT Int : 354 ms P-R-T Axes : 005 013 042 degrees QTc Int : 406 ms Sinus rhythm Abnormal R-wave progression, early transition Confirmed by Rell Doss [id number]) on 07/10/2018 3:10:29 PM Referred By: Rell Doss Confirmed By:Rell Doss
--- NOTE | 2018-07-10 15:11 | PDGENHP ---
History and Physical - Chief Complaint chest pain - History of Present Illness 88 yo female with h/o hypertension and spinal stenosis presents to ED with chest pain. She awoke at 5 am with chest discomfort. She has a hard time describing the pain, but upon my evaluation she complained of 9/10 chest discomfort. It does not radiate. There is no associated diaphoresis, nausea or shortness of breath. Cardiac risk factors include age, h/o hypertension and family history of premature heart disease (son had UT in his 50's). She is a lifetime non-smoker. No h/o diabetes. She denies abdominal pain, N/V or urinary symptoms. In the ED, EKG was non-ischemic and initial troponin was negative. Given her risk factors, she is admitted for further evaluation. History Information - Allergies/Home Medication List Allergies/Adverse Reactions: No Known Allergies Allergy (Verified 07/10/18 09:50) Home Medications: Acetaminophen [Tylenol 325mg (*)] 650 mg PO Q8HRS PRN 07/10/18 [Last Taken Unknown] Ascorbic Acid [Vitamin C 500 mg (*)] 500 mg PO DAILY 07/10/18 [Last Taken Unknown] Estrogens,Conjugated [Premarin Vaginal (*)] 0.5 nia VG AD 07/10/18 [Last Taken Unknown] Ketorolaco 10mg 10 mg PO DAILY PRN 07/10/18 [Last Taken Unknown] clonazePAM [klonoPIN (*)] 1 mg PO HS 07/10/18 [Last Taken 07/09/18] predniSONE [Prednisone] 40 mg PO DAILY PRN 07/10/18 [Last Taken Unknown] traMADol [Ultram 50 mg (*)] 50 - 100 mg PO Q4-6PRN PRN 07/10/18 [Last Taken Unknown] I have personally reviewed and updated: family history, medical history, social history, surgical history - Past Medical History osteoporosis Additional medical history: osteoporosis, lumbar spinal stenosis and L1-2 disk herniation, HTN - Surgical History Reports: no pertinent surgical hx, spinal surgery - Family History Positive for: cancer, male first degree with history of premature CAD - Social History Smoking Status: Never smoked Alcohol Use: None Drug Use: None Additional social history: lives with daughter, who is present at the bedside Review of Systems Review of Systems: ROS: 10pt was reviewed & negative except for what was stated in HPI & below Physical Exam Physical Exam: Temp Pulse Resp BP Pulse Ox 36.6 C 88 14 97/78 L 96 07/10/18 12:40 07/10/18 15:02 07/10/18 15:02 07/10/18 15:02 07/10/18 15:02 Constitutional: no apparent distress Eyes: PERRL Ears, Nose, Mouth, Throat: moist mucous membranes Cardiovascular: regular rate and rhythym Respiratory: no respiratory distress, clear to auscultation Gastrointestinal: normoactive bowel sounds, soft, non-tender abdomen Skin: warm Musculoskeletal: full muscle strength Neurologic: AAOx3 Psychiatric: interacting appropriately Lab Data & Imaging Review 07/10/18 10:00 07/10/18 10:00 WBC 7.86 10^3/uL (3.80-9.50) 07/10/18 10:00 RBC 3.91 10^6/uL (4.18-5.33) L 07/10/18 10:00 Hgb 13.2 g/dL (12.6-16.3) 07/10/18 10:00 Hct 39.1 % (38.0-47.0) 07/10/18 10:00 MCV 100.0 fL (81.5-99.8) H 07/10/18 10:00 MCH 33.8 pg (27.9-34.1) 07/10/18 10:00 MCHC 33.8 g/dL (32.4-36.7) 07/10/18 10:00 RDW 13.2 % (11.5-15.2) 07/10/18 10:00 Plt Count 204 10^3/uL (150-400) 07/10/18 10:00 MPV 8.5 fL (8.7-11.7) L 07/10/18 10:00 Neut % (Auto) 58.1 % (39.3-74.2) 07/10/18 10:00 Lymph % (Auto) 31.8 % (15.0-45.0) 07/10/18 10:00 Gordon % (Auto) 8.0 % (4.5-13.0) 07/10/18 10:00 Eos % (Auto) 0.8 % (0.6-7.6) 07/10/18 10:00 Baso % (Auto) 0.3 % (0.3-1.7) 07/10/18 10:00 Nucleat RBC Rel Count 0.0 % (0.0-0.2) 07/10/18 10:00 Absolute Neuts (auto) 4.57 10^3/uL (1.70-6.50) 07/10/18 10:00 Absolute Lymphs (auto) 2.50 10^3/uL (1.00-3.00) 07/10/18 10:00 Absolute Monos (auto) 0.63 10^3/uL (0.30-0.80) 07/10/18 10:00 Absolute Eos (auto) 0.06 10^3/uL (0.03-0.40) 07/10/18 10:00 Absolute Basos (auto) 0.02 10^3/uL (0.02-0.10) 07/10/18 10:00 Absolute Nucleated RBC 0.00 10^3/uL (0-0.01) 07/10/18 10:00 Immature Gran % 1.0 % (0.0-1.1) 07/10/18 10:00 Immature Gran # 0.08 10^3/uL (0.00-0.10) 07/10/18 10:00 PT 11.5 SEC (12.0-15.0) L 07/10/18 10:00 INR 0.87 (0.83-1.16) 07/10/18 10:00 APTT 24.4 SEC (23.0-38.0) 07/10/18 10:00 Sodium 132 mEq/L (135-145) L 07/10/18 10:00 Potassium 5.0 mEq/L (3.5-5.2) 07/10/18 10:00 Chloride 105 mEq/L (97-110) 07/10/18 10:00 Carbon Dioxide 22 mEq/l (22-31) 07/10/18 10:00 Anion Gap 5 mEq/L (6-14) L 07/10/18 10:00 BUN 27 mg/dL (7-23) H 07/10/18 10:00 Creatinine 0.7 mg/dL (0.6-1.0) 07/10/18 10:00 Estimated GFR > 60 07/10/18 10:00 Glucose 88 mg/dL (70-100) 07/10/18 10:00 Calcium 8.3 mg/dL (8.5-10.4) L 07/10/18 10:00 POC Troponin I 0.01 ng/mL (0.00-0.08) 07/10/18 10:08 Troponin I < 0.012 ng/mL (0.000-0.034) 07/10/18 10:00 Visualized and Interpreted Chest x-ray results: Yes Chest X-Ray results: no infiltrate Visualized and Interpreted EKG results: Yes EKG Interpretation: Positive for: normal sinsus rhythm Assessment & Plan Assessment: Chest pain (Acute) - HEART score 4 based on h/o htn, family h/o PHD (son had UT in his 50's) and age. Initial EKG non-ischemic, trop neg. Now has recurrent 9/ 10 CP, which came down to 3/10 after ASA. NTG deferred with SBP 90's. Query GI source of pain with recent prednisone and nsaid use. -stat EKG now - no dynamic changes, remains non-ischemic -trend trop -full dose ASA now -IV morphine for pain -check echo to eval for WMA -if above w/u neg, plan for lexiscan in am (unable to exercise due to spinal stenosis and weakness) Hypertension - hx noted, but not on meds, sounds like she may have labile bp's -prn low dose metoprolol Spinal stenosis - has required steroid injections, last in 12/2017 -prn tramadol or morphine for pain -defer nsaids -PT/OT Code status - discussed with pt and daughter. She wishes to be DNR, which will be honored. Dispo - obs
[2018-07-10] MEDS ORDERED: NITROGLYCERIN 0.4 MG BTL SL PRN (15:14)
[2018-07-10] MEDS ORDERED: traMADol 50 MG TAB PO PRN (15:41)
[2018-07-10] MEDS ORDERED: METOPROLOL TARTRATE 25 MG TAB PO PRN (15:47)
[2018-07-10] MEDS ORDERED: clonazePAM 1 MG TAB PO SCH (21:00)
[2018-07-11 08:21] VITALS: BP 121/72
[2018-07-11] MEDS ORDERED: ENOXAPARIN 40 MG/0.4 ML SYR SC SCH (09:00)
[2018-07-11] MEDS ORDERED: REGADENOSON 0.4 MG/5 ML SYR IVP ONE (09:27)
[2018-07-11] MEDS ORDERED: CALCIUM CARBONATE 500 MG CHEWABLE TAB PO PRN (18:18)
--- NOTE | 2018-07-11 19:31 | CPR ---
[f rep st] NONINVASIVE CARDIAC PROCEDURE REPORT DATE OF PROCEDURE: 07/11/2018 PROCEDURE: Lexiscan nuclear stress test. INDICATION: The patient is an 88-year-old female who presented to the hospital with chest pain. She was resting when she developed sharp chest pain. She is unable to exercise, secondary to musculoske letal issues, but denies any exertional chest discomfort or shortness of breath. She denies any hist ory of hypertension, diabetes, hyperlipidemia, or tobacco use. PROCEDURE IN DETAIL: Consent was obtained and the patient was placed on continuous telemetry. Her r esting EKG reveals normal sinus rhythm with a heart rate of 85, AK interval of 149, QRS duration of 7 2, and a QTc of 422. She has early R-wave progression with 1 PAC. The patient was infused with Shantelle scan and denied any symptoms associated with the infusion. She did become slightly tachycardic with a heart rate of 106 with the infusion. She remained in normal sinus rhythm with rare PACs. There we re no significant ST-T wave changes. Her blood pressure at rest was 134/76 and remained stable throu ghout the study. PLAN: Await nuclear images. /[id number]/MODL
--- NOTE | 2018-07-11 19:33 | GDS ---
[f rep st] DISCHARGE SUMMARY CONSULTS: None applicable. PROCEDURES: Myocardial perfusion scan. FOLLOWUP: Primary care physician. HOSPITAL COURSE PROBLEM LIST: Chest pain. Initial troponin and EKG without any ischemic changes. P meg underwent MPS which showed no acute ischemia. Patient was reporting reflux prior to admission . She was given Tums with resolution of pain. Patient discharged to follow up with PCP. /[id number]/MODL
--- NOTE | 2018-07-12 17:36 | ECHO ---
[email or web address] [address] Main: [phone] Echocardiography Examination Transthoracic Name: ROSALIE DODGE MR#: [id number] Study Date: 07/10/2018 Study Time: 03:38 PM Date of : 1930 Age: 88 year(s) Height: 154.9 cm (61 in.) Weight: 66.23 kg (146 lb.) BSA: 1.65 m2 Gender: Female Examination: Hypotension Contrast: Image Quality: Adequate Rhythm: Normal sinus rhythm Heart Rate: 86 bpm BP: 160 mmHg/75 mmHg Indication: Chest Pain Procedure Staff Referring Physician: Corporate Communications Intern: Wan Mike RDCS Reading Physician: Robert Hartman MD Requesting Provider: Indication: Chest Pain Measurements Chambers AV/MV Label Value Normal Value Label Value Normal Value EF lower range (%) 65 % AV PGmax 7 mmHg EF upper range (%) 70 % AV PGmean 3 mmHg IVSd, 2D 0.7 cm (0.6cm - 1.1cm) AV Vmax, Caliper 1.36 m/s LVDd, 2D 3.9 cm (3.9cm - 5.3cm) KUNAL (continuity eq. 2.4 cm2 LVDs, 2D 2.5 cm (2.1cm - 4cm) Vmax) LVEF, 2D 67 % (54% - 74%) KUNAL D (continuity eq. 2.4 cm2 LVOT PGmax 5 mmHg VTI) LVOT PGmean 2 mmHg MV A Vmax 0.97 m/s LVOT Vmax 1.14 m/s (0.7m/s - 1.1m/s) MV E' lateral 0.07 m/s LVOT Vmean 0.66 m/s MV E' mean 0.06 m/s LVOTd 1.9 cm (1.8cm - 2cm) MV E' septal 0.05 m/s LVPWd, 2D 0.9 cm MV E Vmax 0.66 m/s RVDd, 2D 1.3 cm (1.9cm - 3.8cm) MV E/A 0.68 LA Area, A2C 11.9 cm2 (0cm2 - 20cm2) MV E/E' lateral 9 LA Volume, A2C 25 ml (22ml - 52ml) MV E/E' mean 11 LAD Index, 2D 1.82 cm/m2 MV E/E' septal 14 (0.45 - 1.25) LADs, 2D 3 cm (2.7cm - 3.8cm) TV/PV RA Area 9 cm2 Label Value Normal Value Additional Vessels RA Pressure 5 mmHg Label Value Normal Value RVSP 40 mmHg Patient: ROSALIE DODGE Study Date: 07/10/2018 Page 1 of 3 03:38 PM AoRoot, MM 2.4 cm (2.2cm - 3.7cm) TR Pmax 35 mmHg TR Vmax 2.96 m/s PV PGmax 4 mmHg PV Vmax, Caliper 0.98 m/s (0.6m/s - 0.9m/s) Conclusions (1) Left ventricular systolic ejection fraction was normal (65-70% - hypercontractive LV (2) Normal RV size and function (3) Normal atrial dimensions (4) Normal mitral and aortic valves (5) Normal tricuspid valve with RVSP of 40 mm Hg (6) No pericardial effusion Findings Left Ventricle: Left ventricle is normal in size. Global hypercontractility of the left ventricle. The ejection fraction, measured by 2D, is 67 %. EF range is estimated at 65 % - 70 %. Left ventricle wall thickness is normal. There is no regional wall motion abnormalities. Left ventricular diastolic function parameters are normal. IVS: The septum is intact. Right Ventricle: Normal size right ventricle. Right ventricular wall thickness is normal. Right ventricular systolic function is normal. Left Atrium: The left atrium is normal in size. IAS: Normal appearing atrial septum. Right Atrium: The right atrium is normal in size. Mitral Valve: Normal . No mitral regurgitation. No mitral valve stenosis. Aortic Valve: Aortic leaflets exhibit normal cuspal separation. No aortic valve regurgitation. There is no aortic stenosis. Tricuspid Valve: Tricuspid valve leaflets are normal in appearance and function. No tricuspid regurgitation. No tricuspid valve stenosis. Right Ventricular systolic pressure is measured at 40 mmHg. Pulmonary artery pressure normal. Pulmonic Valve: Pulmonic leaflets exhibit normal cuspal separation. No pulmonic valve regurgitation is evident. There is no pulmonic valve stenosis. Aorta: The aorta is normal. The aortic root size in M-mode measures 2.4 cm. Aorta Measurements AoRoot, MM is 2.4 cm. Pulmonary Artery: The pulmonary artery morphology appears normal. IVC: The inferior vena cava is normal in size and course. Pericardium: No pericardial effusion. No pleural effusion present. Exam Details Procedure Ordered: Hypotension Patient: ROSALIE DODGE Study Date: 07/10/2018 Page 2 of 3 03:38 PM Procedure Status: Routine study Image Quality: Adequate Facility Location: Cardiac Echo 1 (No Signature Object) Patient: ROSALIE DODGE Study Date: 07/10/2018 Page 3 of 3 03:38 PM [id number]
--- NOTE | 2018-07-13 11:45 | CPEKG ---
Test Reason : OPEN Blood Pressure : / mmHG Vent. Rate : 082 BPM Atrial Rate : 081 BPM P-R Int : 170 ms QRS Dur : 068 ms QT Int : 365 ms P-R-T Axes : 053 018 049 degrees QTc Int : 427 ms Sinus rhythm Ventricular premature complex Abnormal R-wave progression, early transition Confirmed by Ramakrishna Hoskins [id number] on 07/13/2018 11:45:10 AM Referred By: Preeti España Confirmed By:Ramakrishna Hoskins
== END 2018-07-11 14:00 | disposition home or self-care (01) ==
LOC: INTOOBSV 11:22 → F2W 12:25
PROVIDERS: ADMIT Hospitalist; ATTEND Family Medicine
DX: R07.9 Chest pain, unspecified (principal); M48.061 Spinal stenosis, lumbar region without neurogenic claudication; M54.5 Low back pain; I10 Essential (primary) hypertension; M81.0 Age-related osteoporosis without current pathological fracture
CPT/HCPCS: 71045; 78452; 93005; 93306; 97165; 99285; A9500; G0378; J2785; 84484-ER

== ENCOUNTER 2018-07-23 12:19 | Inpatient (IN) | payer OTHER ==
--- NOTE | 2018-07-23 12:50 | EDPHY ---
H & P Stated Complaint: pt with ? flu/decreasing o2 sats cough Time Seen by Provider: 07/23/18 13:00 HPI/ROS: CHIEF COMPLAINT: Cough HISTORY OF PRESENT ILLNESS: This is an 88-year-old female referred to the emergency department from [facility] where she was initially evaluated. She is French-speaking only and history was obtained with the aid of an assembler bicycle and her daughter, who is bilingual. Patient has had a cough for the last 5 days. It was waxing and waning until last night when it seemed to worsen. She was up most of the night coughing. When she was seen at [facility] this morning she was noted to be hypoxic. She was told that she might have influenza, no testing was done. She has had an influenza vaccination this year. She denies fever, headache, sore throat, myalgias, and chest pain. She was admitted to this hospital on July 10 with chest pain. She underwent an evaluation of chest pain that was ultimately negative and she was discharged home. REVIEW OF SYSTEMS: A ten system review of systems was performed and is negative with the exception of the items mentioned in the HPI. Past medical history: 1. Spinal stenosis 2. Hypertension per history, but daughter states that it seems to be intermittent high blood pressure, patient is not a medication 3. Subdural hematoma in March of 2018, no surgery Past surgical history: Lumbar spine surgery Social history: She lives with her daughter, who is her caregiver. She is ambulatory only within the home for short distances. No tobacco use. No alcohol use. General Appearance: Alert. Vital signs reviewed. Heart rate 115, room air oxygen saturation 90%. Temperature 37.7 degrees at triage. Eyes: Pupils equal and round, no conjunctival injection, no discharge. Anicteric. ENT, Mouth: Mucous membranes are moist, no oropharyngeal erythema or edema. Neck: No lymphadenopathy, supple. Trachea midline. Respiratory: Lungs are clear to auscultation; no wheezes, rales, or rhonchi. Cardiovascular: Mildly tachycardic with heart rate of 105; no murmur, rub, or gallop. Gastrointestinal: Abdomen is soft and nontender, no masses or organomegaly, bowel sounds normal. Skin: Warm and dry, no rashes on exposed skin, normal color. Back: Nontender to palpation over the thoracolumbar spine. No CVAT. Extremities: No lower extremity edema, no calf tenderness or swelling. Tender to palpation over the right lateral distal thigh with no palpable deformity or visible bruising or swelling. Neurological: Alert and oriented. Moving all four extremities easily and equally. Psychiatric: Normal affect. - Personal History Current Tetanus Diphtheria and Acellular Pertussis (TDAP): Yes - Medical/Surgical History Hx Asthma: No Hx Chronic Respiratory Disease: No Hx Diabetes: No Hx Cardiac Disease: No Hx Renal Disease: No Hx Cirrhosis: No Hx Alcoholism: No Hx HIV/AIDS: No Hx Splenectomy or Spleen Trauma: No Other PMH: osteoporosis, spinal stenosis, HTN - Social History Smoking Status: Never smoked Constitutional: Initial Vital Signs Temperature (C) 37.7 C 07/23/18 12:24 Heart Rate 115 H 07/23/18 12:24 Respiratory Rate 18 07/23/18 12:24 Blood Pressure 116/99 H 07/23/18 12:24 O2 Sat (%) 90 L 07/23/18 12:24 O2 Delivery Mode Room Air O2 (L/minute) 2 Allergies/Adverse Reactions: No Known Allergies Allergy (Verified 07/23/18 12:22) Home Medications: Medication Instructions Recorded Acetaminophen [Tylenol 325mg (*)] 650 mg PO Q8HRS PRN 07/10/18 Ascorbic Acid [Vitamin C 500 mg 500 mg PO DAILY 07/10/18 (*)] Ketorolaco 10mg 10 mg PO DAILY PRN 07/10/18 clonazePAM [klonoPIN (*)] 1 mg PO HS 07/10/18 predniSONE [Prednisone] 40 mg PO DAILY PRN 07/10/18 traMADol [Ultram 50 mg (*)] 50 - 100 mg PO Q4-6PRN PRN 07/10/18 Calcium Carbonate [Oyster Shell 500 mg PO DAILY 07/23/18 Calcium 500 mg (*)] Medical Decision Making - Diagnostics EKG Interpretation: 12 lead EKG is interpreted in [place] by emergency department physician. Sinus tachycardia with a rate of 117. There is some baseline artifact. No acute ischemic changes. ED Course/Re-evaluation: 88-year-old female with cough and hypoxia. She did not initially meet sepsis criteria when she arrived in the emergency department. In subsequent review of her hospital stay, I note that she developed elevated temperature after leaving the emergency department. At that point she met sepsis criteria. While she was in the department I reviewed her laboratory studies, EKG, and chest x-ray. Chest x-ray did not show an infiltrate. However, I suspect that she has a pneumonia/bronchopneumonia. Antibiotics will be ordered by the admitting hospitalist. Oxygen saturation was in the mid 90s on 2 L nasal cannula. She had an occasional deep cough, no sputum production in the department. I did not an acute coronary syndrome or cardiac etiology. BNP is elevated but within normal range for her age. Influenza testing was done was negative for influenza a and influenza B. Respiratory pathogen panel pending. Patient mentions pain along the lateral right thigh. This is not new. She does have some tenderness in the distal lateral right thigh. There is no calf tenderness or swelling. I do not think that this pain is suggestive of DVT. Differential Diagnosis: Considered a differential diagnosis including but not limited to pulmonary infectious process, COPD, asthma, pulmonary embolus and congestive heart failure. - Data Points Laboratory Results: Laboratory Results 07/23/18 13:25 07/23/18 13:25 Microbiology Results: MICROBIOLOGY 07/23/18 14:12 Nasal, Sinus - Swab Respiratory Panel (PCR) - Final Parainfluenza Virus Type 3 Medications Given: Acetaminophen (Tylenol) 650 mg PO Q4HRS PRN PRN Reason: Pain, Mild/Fever, Can Take PO Stop: 01/19/19 15:00 Last Admin: 07/24/18 01:05 Dose: 650 mg Ascorbic Acid (Vitamin C) 500 mg PO DAILY HANS Stop: 01/20/19 08:59 Last Admin: 07/24/18 08:53 Dose: 500 mg Benzonatate (Tessalon Pearles) 100 mg PO TID PRN PRN Reason: Cough, Mild Stop: 01/20/19 01:09 Last Admin: 07/24/18 01:17 Dose: 100 mg Calcium Carbonate (Oyster Shell Calcium) 500 mg PO DAILY HANS Stop: 01/20/19 08:59 Last Admin: 07/24/18 08:53 Dose: 500 mg Clonazepam (Klonopin) 1 mg PO HS HANS Stop: 01/19/19 20:59 Last Admin: 07/23/18 20:21 Dose: 1 mg Enoxaparin Sodium (Lovenox) 40 mg SC DAILY HANS Stop: 01/20/19 08:59 Last Admin: 07/24/18 08:53 Dose: 40 mg Guaifenesin/Dextromethorphan (Robitussin Dm Oral Liquid) 10 ml PO Q4HRS PRN PRN Reason: Cough, Moderate Stop: 01/20/19 01:09 Last Admin: 07/24/18 01:17 Dose: 10 ml Levalbuterol (Xopenex 0.63mg Neb) 0.63 mg IH QID HANS Stop: 01/19/19 20:59 Last Admin: 07/24/18 09:51 Dose: 0.63 mg Prednisone (Prednisone) 40 mg PO DAILY [facility] Stop: 01/20/19 08:59 Last Admin: 07/24/18 09:04 Dose: 40 mg Discontinued Medications Albuterol/Ipratropium (Duoneb) 3 ml IH EDNOW ONE Stop: 07/23/18 13:14 Last Admin: 07/23/18 13:23 Dose: 3 ml Albuterol/Ipratropium (Duoneb) 3 ml IH QID HANS Stop: 01/19/19 15:59 Last Admin: 07/23/18 16:27 Dose: 3 ml Furosemide (Lasix Injection) 40 mg IVP ONCE ONE Stop: 07/24/18 12:20 Last Admin: 07/24/18 12:38 Dose: 40 mg Sodium Chloride (Ns) 1,000 mls @ 100 mls/hr IV CONT HANS Stop: 01/19/19 15:14 Last Admin: 07/24/18 04:29 Dose: 1,000 mls Levofloxacin/Dextrose (Levaquin 750 Mg (Premix)) 150 mls @ 100 mls/hr IV Q24H HANS PRN Reason: Protocol Stop: 08/22/18 16:59 Last Admin: 07/23/18 17:31 Dose: 150 mls Point of Care Test Results: Chemistry 07/23/18 13:29 POC Troponin I 0.00 ng/mL ng/mL (0.00-0.08) Departure - Departure Disposition: [facility] Acute Clinical Impression: Pneumonia Qualifiers: Pneumonia type: due to unspecified organism Laterality: unspecified laterality Lung location: unspecified part of lung Qualified Code(s): J18.9 - Pneumonia, unspecified organism Condition: Fair
[2018-07-23] MEDS ORDERED: IPRATROPIUM/ALBUTEROL 3 ML DEYVIAL IH ONE (13:13)
[2018-07-23 13:33] LABS: PLATELET COUNT 194 10^3/uL (150-400)
[2018-07-23] MEDS ORDERED: HYDROCODONE/APAP 5/325 TAB PO PRN (15:01)
[2018-07-23] MEDS ORDERED: oxyCODONE IR 5 MG TAB PO PRN (15:01)
[2018-07-23] MEDS ORDERED: ONDANSETRON DISINTEGRATING 4 MG TAB PO PRN (15:01)
[2018-07-23] MEDS ORDERED: ONDANSETRON 4 MG/2 ML VIAL IVP PRN (15:01)
[2018-07-23] MEDS ORDERED: HYDROmorphONE/DILAUDID 1 MG/ML INJ IVP PRN (15:01)
[2018-07-23] MEDS ORDERED: PROMETHAZINE HCL 25 MG/ML INJ IVP PRN (15:01)
[2018-07-23] MEDS ORDERED: ALBUTEROL 3 ML DEYVIAL IH PRN (15:01)
[2018-07-23] MEDS ORDERED: traMADol 50 MG TAB PO PRN (15:03)
[2018-07-23] MEDS ORDERED: IOPAMIDOL (ISOVUE-370) 150 ML BTL IV ONE (15:05)
--- NOTE | 2018-07-23 15:52 | CPEKG ---
Test Reason : OPEN Blood Pressure : / mmHG Vent. Rate : 117 BPM Atrial Rate : 117 BPM P-R Int : 167 ms QRS Dur : 062 ms QT Int : 297 ms P-R-T Axes : 010 -15 030 degrees QTc Int : 415 ms Sinus tachycardia Borderline left axis deviation Confirmed by Arthur Torres ([id number]) on 07/23/2018 3:52:22 PM Referred By: ARTHUR TORRES Confirmed By:Arthur Torres
[2018-07-23] MEDS ORDERED: IPRATROPIUM/ALBUTEROL 3 ML DEYVIAL IH SCH (16:00)
--- NOTE | 2018-07-23 16:28 | PDGENHP ---
History and Physical - Chief Complaint cough/sob - History of Present Illness 88 yo F, [place] Speaking only, presenting with complaints of 5 days of cough and shortness of breath. [facility] and notes that she was seen there earlier in the week for these sxs and a cxr was performed that was negative. She was told she may have flu but a test was not performed at that time. Since then her sxs have gotten worse. She has had cough productive of white sputum, subjective fevers and chills and generally feeling weak. She became very short of breath last night and again today. Her family notes that earlier in the week she had significant pain and swelling of her right leg, the swelling has resolved but still some tenderness particularly in the lower thigh. She denies chest pain or palpitations. She is largely wheelchair bound due to spinal stenosis--at home she uses a walker and furniture to get around but when she leaves the home she needs a wheelchair. On arrival to the ER she was found to have O2 sats of 90%, improved to mid 90s on 2L. History Information - Allergies/Home Medication List Allergies/Adverse Reactions: No Known Allergies Allergy (Verified 07/23/18 12:22) Home Medications: Acetaminophen [Tylenol 325mg (*)] 650 mg PO Q8HRS PRN 07/10/18 [Last Taken Unknown] Ascorbic Acid [Vitamin C 500 mg (*)] 500 mg PO DAILY 07/10/18 [Last Taken Unknown] Ketorolaco 10mg 10 mg PO DAILY PRN 07/10/18 [Last Taken Unknown] clonazePAM [klonoPIN (*)] 1 mg PO HS 07/10/18 [Last Taken 07/09/18] predniSONE [Prednisone] 40 mg PO DAILY PRN 07/10/18 [Last Taken Unknown] traMADol [Ultram 50 mg (*)] 50 - 100 mg PO Q4-6PRN PRN 07/10/18 [Last Taken Unknown] Calcium Carbonate [Oyster Shell Calcium 500 mg (*)] 500 mg PO DAILY 07/23/18 [ Last Taken Unknown] I have personally reviewed and updated: family history, medical history, social history, surgical history - Past Medical History osteoporosis Additional medical history: osteoporosis, lumbar spinal stenosis and L1-2 disk herniation, HTN, SDH post trauma, multiple compression fractures - Surgical History Reports: no pertinent surgical hx, spinal surgery - Family History Positive for: cancer, male first degree with history of premature CAD - Social History Smoking Status: Never smoked Alcohol Use: None Drug Use: None Additional social history: lives with daughter, who is present at the bedside. uses wheelchair mostly but is able to ambulate a few steps with a walker while in the home Review of Systems Review of Systems: ROS: 10pt was reviewed & negative except for what was stated in HPI & below Physical Exam Physical Exam: Temp Pulse Resp BP Pulse Ox 38.3 C H 106 H 16 175/95 H 97 07/23/18 16:02 07/23/18 16:02 07/23/18 16:02 07/23/18 15:54 07/23/18 16:02 O2 (L/minute) 2 Constitutional: chronically ill appearing, uncomfortable Eyes: PERRL, scleral injection Ears, Nose, Mouth, Throat: moist mucous membranes, poor dentition Cardiovascular: no murmur, rub, or gallop, tachycardia, edema (trace ble edema) Respiratory: reduced air movement, bronchial breath sounds, respiratory distress Gastrointestinal: normoactive bowel sounds, soft, non-tender abdomen Genitourinary: no bladder tenderness Skin: warm, normal color Musculoskeletal: full muscle strength Neurologic: AAOx3 Psychiatric: interacting appropriately, not anxious, not encephalopathic Lab Data & Imaging Review 07/23/18 13:25 07/23/18 13:25 WBC 5.88 10^3/uL (3.80-9.50) 07/23/18 13:25 RBC 3.99 10^6/uL (4.18-5.33) L 07/23/18 13:25 Hgb 13.7 g/dL (12.6-16.3) 07/23/18 13:25 Hct 41.0 % (38.0-47.0) 07/23/18 13:25 MCV 102.8 fL (81.5-99.8) H 07/23/18 13:25 MCH 34.3 pg (27.9-34.1) H 07/23/18 13:25 MCHC 33.4 g/dL (32.4-36.7) 07/23/18 13:25 RDW 12.8 % (11.5-15.2) 07/23/18 13:25 Plt Count 194 10^3/uL (150-400) 07/23/18 13:25 MPV 8.7 fL (8.7-11.7) 07/23/18 13:25 Neut % (Auto) 71.0 % (39.3-74.2) 07/23/18 13:25 Lymph % (Auto) 16.0 % (15.0-45.0) 07/23/18 13:25 [place] % (Auto) 9.9 % (4.5-13.0) 07/23/18 13:25 Eos % (Auto) 2.6 % (0.6-7.6) 07/23/18 13:25 Baso % (Auto) 0.3 % (0.3-1.7) 07/23/18 13:25 Nucleat RBC Rel Count 0.0 % (0.0-0.2) 07/23/18 13:25 Absolute Neuts (auto) 4.18 10^3/uL (1.70-6.50) 07/23/18 13:25 Absolute Lymphs (auto) 0.94 10^3/uL (1.00-3.00) L 07/23/18 13:25 Absolute Monos (auto) 0.58 10^3/uL (0.30-0.80) 07/23/18 13:25 Absolute Eos (auto) 0.15 10^3/uL (0.03-0.40) 07/23/18 13:25 Absolute Basos (auto) 0.02 10^3/uL (0.02-0.10) 07/23/18 13:25 Absolute Nucleated RBC 0.00 10^3/uL (0-0.01) 07/23/18 13:25 Immature Gran % 0.2 % (0.0-1.1) 07/23/18 13:25 Immature Gran # 0.01 10^3/uL (0.00-0.10) 07/23/18 13:25 Sodium 133 mEq/L (135-145) L 07/23/18 13:25 Potassium 4.6 mEq/L (3.5-5.2) 07/23/18 13:25 Chloride 103 mEq/L (97-110) 07/23/18 13:25 Carbon Dioxide 23 mEq/l (22-31) 07/23/18 13:25 Anion Gap 7 mEq/L (6-14) 07/23/18 13:25 BUN 18 mg/dL (7-23) 07/23/18 13:25 Creatinine 0.7 mg/dL (0.6-1.0) 07/23/18 13:25 Estimated GFR > 60 07/23/18 13:25 Glucose 97 mg/dL (70-100) 07/23/18 13:25 Calcium 8.7 mg/dL (8.5-10.4) 07/23/18 13:25 POC Troponin I 0.00 ng/mL (0.00-0.08) 07/23/18 13:29 NT-Pro-B Natriuret Pep 523 pg/mL (0-450) H 07/23/18 13:25 Nasal Influenza A PCR NEGATIVE FOR FLU A (NEGATIVE) 07/23/18 13:16 Nasal Influenza B PCR NEGATIVE FOR FLU B (NEGATIVE) 07/23/18 13:16 Visualized and Interpreted Chest x-ray results: Yes Chest X-Ray results: other (mild stable bronchits) Visualized and Interpreted imaging results: Yes Interpretation: CTA: no PE, stable compression fractures T2, T9, T12 Visualized and Interpreted EKG results: Yes EKG additional interpertation: sinus tachycardia Assessment & Plan Assessment: 88 yo F with PMH of gait instability 2/2 spinal stenosis and compression fractures presenting with sob/cough and hypoxic respiratory failure # acute hypoxic respiratory failure: with o2 sats of 90% and associated shortness of breath and increased wob. Etiology presumably infectious with negative CTA for PE, but no e/o PNA on imaging. Improved with oxygen. Will treat as below. # sepsis: presumably due to infectious source given AHRF and pulmonary complaints though imaging not c/w pna currently. Meeting SIRS with fever and tachycardia. Will check procalcitonin and start levofloxacin as next # bronchopneumonia: patient with sepsis and respiratory complaints as above, presumably due to bronchopneumonia given lack of clear infiltrate on imaging. Started levofloxacin and monitoring. She does not have significant wheezing but moving air poorly, will start nebs and prednisone 40mg daily (at home she uses prednisone intermittently for her back pain) # lumbar spinal stenosis/multiple compression fractures: nothing acute noted on imaging and patient without new complaints, she does have limited mobility due to this, will get pt/ot to evaluate while in house # htn: not currently on any anti-hypertensives at home per med list, will monitor but has been slightly elevated since arrival, may need to dc on medication # osteoporosis: multiple compression fractures as above, all appear stable # observation status # DNR Patient new to my care. Old records reviewed and summarized as above. Care plan reviewed with ER doctor and further hx obtained from patients daughter and grand daughter present at bedside.
[2018-07-23] MEDS: ACETAMINOPHEN 325 MG TAB PO PRN (16:34)
[2018-07-23] MEDS: NS 1,000 ML IV SCH (17:15)
[2018-07-23] MEDS: clonazePAM 1 MG TAB PO SCH (20:21)
[2018-07-23] MEDS: LEVALBUTEROL 0.63 MG/3 ML DEYVIAL IH SCH (21:37)
[2018-07-24] MEDS: ACETAMINOPHEN 325 MG TAB PO PRN (01:05)
[2018-07-24] MEDS: GUAIFENESIN/DM 10 ML UDCUP PO PRN ×2 (01:17→22:50)
[2018-07-24] MEDS: BENZONATATE 100 MG CAP PO PRN ×2 (01:17→22:57)
[2018-07-24] MEDS: NS 1,000 ML IV SCH (04:29)
[2018-07-24 05:28] LABS: PLATELET COUNT 152 10^3/uL (150-400)
[2018-07-24] MEDS: LEVALBUTEROL 0.63 MG/3 ML DEYVIAL IH SCH ×4 (05:39→22:40)
[2018-07-24] MEDS: CALCIUM CARBONATE 500 MG TAB PO SCH (08:53)
[2018-07-24] MEDS: ENOXAPARIN 40 MG/0.4 ML SYR SC SCH (08:53)
[2018-07-24] MEDS: ASCORBIC ACID 500 MG TAB PO SCH (08:53)
[2018-07-24] MEDS: predniSONE 20 MG TAB PO SCH (09:04)
--- NOTE | 2018-07-24 09:12 | HOSPPROG ---
Hospitalist Progress Note Assessment/Plan: # viral bronchitis - parainfluenza - no evidence for bacterial infection at this point, dc abx and follow - will add prednisone - discussed with patient - cont xopenex (tremors with albuterol) - cont tessalon pearls and robitussin # AHRF - d/t above # sepsis - suspect d/t above - she continues to be tachy today, febrile yesterday - will cont IVF noting that her Na is dropping # hypoNa - will need to cont IVF for now as above # htn - not on meds - follow while on steroids # osteoporosis, compression fractures, spinal stenosis - short course of steroids if possible - PT/OT - immobile at baseline, uses walker in hours and w/c when leaving home # DNR # dvt ppx - lovenox Subjective: still with significant coughing overnight; no CP; wants to be discharged; seen with dtr and sheet roller operator Objective: Vital Signs Temp Pulse Resp BP Pulse Ox 37.2 C 105 H 18 147/84 H 94 07/24/18 08:51 07/24/18 08:51 07/24/18 08:51 07/24/18 08:51 07/24/18 08:51 Laboratory Results 07/24/18 04:41 07/24/18 04:41 07/23/18 07/24/18 07/25/18 05:59 05:59 05:59 Intake Total 320 1318 Output Total 800 Balance -[address] reviewed - Physical Exam Constitutional: uncomfortable (coughing) Cardiovascular: no murmur, rub, or gallop, tachycardia Respiratory: expiratory wheeze, inspiratory crackles, respiratory distress (mild ), rhonchi, No bronchial breath sounds Gastrointestinal: soft, non-tender abdomen, no palpable masses, No guarding, No rebound, No distension ICD10 Worksheet Patient Problems: Problems Problem Status Onset Subdural hematoma Acute Fall in bathtub Acute Compression fx, thoracic spine Acute Chest pain Acute Left leg weakness Acute Spinal stenosis Acute Upper respiratory infection Acute
--- NOTE | 2018-07-24 11:20 | ASMTCMCOM ---
CM Note CM Note Notes: Spoke with pt's daughter in the room. Pt is Estonian speaking and requires an spudder, however, daughter is able to communicate in Swedish. Pt admitted for parainfluenza and hypoxia, and is very weak. Pt lives with daughter in a mobile home. does not live with them, but was in the room. CM educated daughter possible safe discharge scenarios and encouraged daughter to have pt participate with therapies to determine safe and effective discharge plan. At this time daughter expressed resistance to rehab facility, but expressed interest in having pt work with therapies. CM explained both HHC and SNF were covered by Medicare. D/C date and plan TBD. D/C Plan: TBD, therapies pending. Date Signed: 07/24/2018 11:19 AM Electronically Signed By:Mayra Schofield
[2018-07-24] MEDS ORDERED: FUROSEMIDE 20 MG/2 ML VIAL IVP ONE (12:19)
[2018-07-24] MEDS: clonazePAM 1 MG TAB PO SCH (21:00)
--- NOTE | 2018-07-24 21:17 | PDMN ---
Medical Necessity Medical necessity: Change to IP, as of 07/24/18, per MD & MCG M-160; los >2 mn for ongoing management of sepsis w/acute hypoxic respiratory failure, tachycardia & worsening dyspnea r/t viral bronchitis/parainfluenza; requiring further workup/monitoring & respiratory supportive care; comorbid advanced age
[2018-07-25 05:31] LABS: PLATELET COUNT 168 10^3/uL (150-400)
[2018-07-25] MEDS: LEVALBUTEROL 0.63 MG/3 ML DEYVIAL IH SCH ×4 (06:07→21:28)
[2018-07-25] MEDS: ENOXAPARIN 40 MG/0.4 ML SYR SC SCH (09:53)
[2018-07-25] MEDS: predniSONE 20 MG TAB PO SCH (09:53)
[2018-07-25] MEDS: CALCIUM CARBONATE 500 MG TAB PO SCH (09:53)
[2018-07-25] MEDS: ASCORBIC ACID 500 MG TAB PO SCH (09:53)
--- NOTE | 2018-07-25 11:02 | ASMTCMCOM ---
CM Note CM Note Notes: Met with pt and dtr, discussed discharge options. Pt is agreeable to homecare, CM sent refferal to [facility] and they can accept. Pt understands she will need to stay home while receiving HC, dc date uncertain, [facility] w/f. DC Plan: HC/ [facility] (PT/OT) Date Signed: 07/25/2018 10:58 AM Electronically Signed By:Cheri Yu RN
--- NOTE | 2018-07-25 11:22 | HOSPPROG ---
Hospitalist Progress Note Assessment/Plan: 88 yo F with PMH of gait instability 2/2 spinal stenosis and compression fractures presenting with sob/cough and hypoxic respiratory failure, first encounter, chart reviewed. # viral bronchitis - parainfluenza -started on steroids, Xopenex and Tessalon Perls, Robitussin #episode of worsening dyspnea -chest xray showed pulm edema -was given dose of Lasix -feeling better today, chest x ray today shows a poss small infiltrate # AHRF - d/t above # sepsis - suspect d/t above # hypoNa - -Na 132, eating and drinking today -dc IV fluids # htn - not on meds # osteoporosis, compression fractures, spinal stenosis - short course of steroids if possible - PT/OT - immobile at baseline, uses walker in hours and w/c when leaving home -lives w her daughter # DNR #plan: will monitor overnight, she is improving and if better, will dc tomorrow. Subjective: Comfort said she is feeling much better since yesterday (met w her w an chemist physical). Objective: Vital Signs Temp Pulse Resp BP Pulse Ox 36.8 C 100 16 115/70 95 07/25/18 07:57 07/25/18 10:09 07/25/18 10:09 07/25/18 07:57 07/25/18 10:09 Laboratory Results 07/25/18 04:25 07/25/18 04:25 07/24/18 07/25/18 07/26/18 05:59 05:59 05:59 Intake Total 400 Output Total 1600 400 Balance -1200 -400 - Physical Exam Constitutional: appears nourished, not in pain, chronically ill appearing Eyes: PERRL Ears, Nose, Mouth, Throat: hearing normal Cardiovascular: no murmur, rub, or gallop Respiratory: no respiratory distress, reduced air movement Gastrointestinal: normoactive bowel sounds Skin: warm Musculoskeletal: generalized weakness Psychiatric: interacting appropriately ICD10 Worksheet Patient Problems: Problems Problem Status Onset Pneumonia Acute Chest pain Acute Compression fx, thoracic spine Acute Fall in bathtub Acute Left leg weakness Acute Spinal stenosis Acute Subdural hematoma Acute Upper respiratory infection Acute
[2018-07-25] MEDS: clonazePAM 1 MG TAB PO SCH (21:26)
[2018-07-26] MEDS: GUAIFENESIN/DM 10 ML UDCUP PO PRN (05:33)
[2018-07-26] MEDS: BENZONATATE 100 MG CAP PO PRN (05:33)
[2018-07-26] MEDS: LEVALBUTEROL 0.63 MG/3 ML DEYVIAL IH SCH ×2 (06:19→10:31)
[2018-07-26] MEDS: CALCIUM CARBONATE 500 MG TAB PO SCH (08:51)
[2018-07-26] MEDS: ASCORBIC ACID 500 MG TAB PO SCH (08:51)
[2018-07-26] MEDS: predniSONE 20 MG TAB PO SCH (08:51)
[2018-07-26] MEDS: ENOXAPARIN 40 MG/0.4 ML SYR SC SCH (10:05)
--- NOTE | 2018-07-26 11:08 | HOSPPROG ---
Hospitalist Progress Note Assessment/Plan: 88 yo F with PMH of gait instability 2/2 spinal stenosis and compression fractures presenting with sob/cough and hypoxic respiratory failure. # viral bronchitis - parainfluenza -started on steroids, Xopenex and Tessalon Perls, Robitussin -much improved #episode of worsening dyspnea -chest xray showed pulm edema -was given dose of Lasix -feeling better today, chest x ray today shows a poss small infiltrate -resolved # AHRF - d/t above -resolved # sepsis - suspect d/t above # hypoNa - -Na 132, eating and drinking today -dc IV fluids # htn - not on meds # osteoporosis, compression fractures, spinal stenosis - short course of steroids if possible - PT/OT - immobile at baseline, uses walker in hours and w/c when leaving home -lives w her daughter # DNR #plan: dc home w f/u chest xray in 6 weeks Subjective: Comfort feels well, no complaints Objective: Vital Signs Temp Pulse Resp BP Pulse Ox 36.6 C 79 16 149/89 H 91 L 07/26/18 08:00 07/26/18 10:25 07/26/18 10:25 07/26/18 08:00 07/26/18 10:25 Laboratory Results 07/25/18 04:25 07/25/18 04:25 07/25/18 07/26/18 07/27/18 05:59 05:59 05:59 Intake Total 400 400 Output Total 1600 800 Balance -1200 -400 - Physical Exam Constitutional: no apparent distress, appears nourished, not in pain Eyes: PERRL Ears, Nose, Mouth, Throat: hearing normal Cardiovascular: regular rate and rhythym Respiratory: no respiratory distress, clear to auscultation Skin: warm Musculoskeletal: generalized weakness Psychiatric: interacting appropriately ICD10 Worksheet Patient Problems: Problems Problem Status Onset Pneumonia Acute Chest pain Acute Compression fx, thoracic spine Acute Fall in bathtub Acute Left leg weakness Acute Spinal stenosis Acute Subdural hematoma Acute Upper respiratory infection Acute
--- NOTE | 2018-07-26 11:18 | PDIAF ---
- Diagnosis Diagnosis: viral bronchitis, parainfluenza Code Status: Do Not Resuscitate - Medication Management Discharge Medications: electronically signed and located in the Home Medication List. PICC Care - Routine: N/A - Orders Services needed: Home Care, Registered Nurse, Physical Therapy, Occupational Therapy Home Care Face to Face: I certify that this patient was under my care and that I had the required [id number] encounter meeting the encounter requirements on the discharge day. My findings support the fact that the patient is homebound as defined in Home Care Face to Face Continued: CMS Chapter 7 Medicare Benefits Manual 30.1.1 , The condition of the patient is such that there exists a normal inability to leave home and consequently, leaving home would require a considerable and taxing effort. Isolation Type: Droplet Isolation Diet Recommendation: no restrictions on diet Diet Texture: Regular Texture Diet Additional Instructions: get a repeat chest x ray in 6 weeks if you develop fever or chills return to the ER f/u with your doctor as scheduled this week home care has been ordered check oxygen levels when evaluating at home - Follow Up Care Current Providers and Referrals: [facility],. [Primary Care Provider] - As per Instructions
--- NOTE | 2018-07-26 11:22 | ASMTLACE ---
LACE Length of stay for Answers: 2 days current admission Acuity / Level of Answers: Yes Care: Did the patient have an inpatient admission? Comorbidities - select Answers: Other Notes: HTN all that apply # of Emergency department Answers: 5-8 visits in the last 6 months Score: 10 Date Signed: 07/26/2018 11:21 AM Electronically Signed By:Cheri Yu RN
--- NOTE | 2018-07-26 11:29 | ASMTDCNOTE ---
Case Management Discharge Discharge Order Complete? Answers: Yes Patient to Obtain Answers: via Family Medications Transportation Arranged Answers: Family/Friends Faxed Final Orders Answers: Yes Agency/Facility Transfer Answers: Yes Report Printed & Faxed to Receiving Agency Family Notified Answers: Yes Discharge Comments Notes: D/w QUANTITATIVE RESEARCH ANALYST, final orders faxed. Rajwinder at [facility] notified, understands pt will need a electrical engineering designer. Per [facility], RN can't come out until Monday, ok with QUANTITATIVE RESEARCH ANALYST. Date Signed: 07/26/2018 11:28 AM Electronically Signed By:Cheri Yu RN
--- NOTE | 2018-07-26 11:37 | PDHOMEO2F ---
Home Oxygen Face to Face Home Orders: I certify that a physician or a nurse practitioner or physician's personalized living assistant has had a jysd-jc-dayh encounter with this patient on the date of this order due to the diagnosis listed, which relates to the primary reason the patient requires home oxygen. Alternative treatments have been tried, or considered, and deemed ineffective. It is anticipated that supplemental oxygen will result in improvement with treatment. Home oxygen qualifying diagnosis: bronchopneumonia SpO2 on room air (%): 84% Frequency of home oxygen needed: continuous Home oxygen liters per minute: 2 Home oxygen delivery device: nasal cannula Concentrator: Yes E-tanks for mobility and back up: Yes If ordering portable O2, is the patient mobile in the home?: Yes I certify that, based on these findings, the home oxygen is medically necessary for this patient for the following length of time. Length of time home oxygen needed: 99 years
--- NOTE | 2018-07-26 11:49 | GDS ---
[f rep st] DISCHARGE SUMMARY DISCHARGE DIAGNOSES: 1. Viral bronchitis, parainfluenza. 2. Episode of worsening dyspnea. 3. Acute hypoxemic respiratory failure. 4. Sepsis. 5. Hyponatremia. 6. Hypertension. 7. Osteoporosis. HISTORY OF PRESENT ILLNESS: Briefly, Ms. Pretty is an 88-year-old woman with a past medical history of gait instability secondary to spinal stenosis and compression fractures. She uses a walker to ambulate. She presented to the emergency room with shortness of breath, a cough, and hypoxic respiratory failure. It was noted that she had parainfluenza. She was treated with supportive care. Today, she is feeling markedly better. She is on room air and anxious to return home. HOSPITAL COURSE PER PROBLEM: 1. Viral bronchitis, parainfluenza. She was treated with steroids, Xopenex, and Tessalon Perles as well as Robitussin. Markedly better. 2. Episode of worsening dyspnea. Her chest x-ray showed some pulmonary edema. She was given a dose of Lasix with marked improvement. 3. Acute hypoxemic respiratory failure, resolved. 4. Sepsis due to her parainfluenza. 5. Hyponatremia. Sodium is 132. 6. Hypertension, now on medications. 7. Osteoporosis, compression fracture, spinal stenosis. She will be on a short course of steroids. She is immobile at baseline. She will have home care follow up with her. DISCHARGE CONDITION: Stable. Blood pressure is 149/89, heart rate is 79, respiratory rate is 16, O2 sats on room air 91%, temperature 36.6 Celsius. MEDICATIONS AT DISCHARGE: Please see the EMR. DISCHARGE INSTRUCTIONS: 1. To get a repeat chest x-ray in 6 weeks to make sure resolution of her pneumonia. 2. Home Care to monitor her oxygen levels and Physical Therapy and Occupational therapy to work with her. 3. If she develops fever, chills, chest pain, shortness of breath, return to the ER. Greater than 30 minutes discharging and coordinating the patient's care. Copy requested to: [facility] /[id number]/MODL MTDD
--- NOTE | 2018-07-26 12:05 | PDHOMEO2F ---
Home Oxygen Face to Face Home Orders: I certify that a physician or a nurse practitioner or physician's day care assistant has had a sysv-mi-gjuk encounter with this patient on the date of this order due to the diagnosis listed, which relates to the primary reason the patient requires home oxygen. Alternative treatments have been tried, or considered, and deemed ineffective. It is anticipated that supplemental oxygen will result in improvement with treatment. Home oxygen qualifying diagnosis: bronchopneumonia, parainfluenza Home oxygen secondary diagnosis: bronchitis SpO2 on room air (%): 84 Frequency of home oxygen needed: continuous Home oxygen liters per minute: 2 Home oxygen delivery device: nasal cannula Concentrator: Yes E-tanks for mobility and back up: Yes If ordering portable O2, is the patient mobile in the home?: Yes I certify that, based on these findings, the home oxygen is medically necessary for this patient for the following length of time. Length of time home oxygen needed: 99 years
[2018-07-26 12:37] VITALS: BP 120/60
--- NOTE | 2018-07-27 09:56 | ASDISCHSUM ---
Discharge Information Plan Status:Home with Home Health Medically Cleared to Leave: Discharge Date:07/26/2018 02:36 PM CM D/C Disposition:Home Health Service ADT D/C Disposition:Home Health Service Projected Discharge Date:07/27/2018 11:00 AM Transportation at D/C:Family Discharge Delay Reason: Follow-Up Date:07/27/2018 11:00 AM Discharge Slot: Final Diagnosis: Placement Information Referral Type:*Home Health Care Services Referral ID:[id number] Provider Name:[facility] Address 1:[address] [facility] [address] Address 2: City:[place] Selection Factors: State:[place] Patient Contact Information Contact Name:ELLENCARYL Relationship:Daughter Address: Work Phone: City:[place] Alternate Phone: State/Zip Code:[place] Email: Financial Information Financial Class:Medicare Primary Plan Desc:MEDICARE INPATIENT Primary Plan Number:[id number] Secondary Plan Desc: Secondary Plan Number: Assessment Information LACE LACE Length of stay for Answers: 2 days current admission Acuity / Level of Answers: Yes Care: Did the patient have an inpatient admission? Comorbidities - select Answers: Other Notes: HTN all that apply # of Emergency department Answers: 5-8 visits in the last 6 months Score: 10 Date Signed: 07/26/2018 11:21 AM Electronically Signed By:Cheri Yu RN [facility] Progress Note CM Note CM Note Notes: Spoke with pt's daughter in the room. Pt is Serbian speaking and requires an fellmongery worker, however, daughter is able to communicate in Syriac. Pt admitted for parainfluenza and hypoxia, and is very weak. Pt lives with daughter in a mobile home. does not live with them, but was in the room. CM educated daughter possible safe discharge scenarios and encouraged daughter to have pt participate with therapies to determine safe and effective discharge plan. At this time daughter expressed resistance to rehab facility, but expressed interest in having pt work with therapies. CM explained both HHC and SNF were covered by Medicare. D/C date and plan TBD. D/C Plan: TBD, therapies pending. Date Signed: 07/24/2018 11:19 AM Electronically Signed By:Mayra Schofield [facility] CM Progress Note CM Note CM Note Notes: Met with pt and dtr, discussed discharge options. Pt is agreeable to homecare, CM sent refferal to [facility] and they can accept. Pt understands she will need to stay home while receiving HC, dc date uncertain, [facility] w/f. DC Plan: HC/ [facility] (PT/OT) Date Signed: 07/25/2018 10:58 AM Electronically Signed By:Cheri Yu RN Case Management Discharge Plan Note Case Management Discharge Discharge Order Complete? Answers: Yes Patient to Obtain Answers: via Family Medications Transportation Arranged Answers: Family/Friends Faxed Final Orders Answers: Yes Agency/Facility Transfer Answers: Yes Report Printed & Faxed to Receiving Agency Family Notified Answers: Yes Discharge Comments Notes: D/w MAKING DEPARTMENT PREPARER, final orders faxed. Rajwinder at [facility] notified, understands pt will need a rug cleaner helper. Per [facility], RN can't come out until Monday, ok with MAKING DEPARTMENT PREPARER. Date Signed: 07/26/2018 11:28 AM Electronically Signed By:Cheri Yu RN Intervention Information Intervention Type:*REAVES-Signed Date of Service:07/24/2018 11:24 AM Patient Type:Observation Staff Member:Nikky Acharya Hours: Discipline: Severity: Comment:Timers Inspector assisted in delivery of Me dicare form.
== END 2018-07-26 14:36 | disposition home health service (06) | DRG 871 ==
LOC: F3E 15:34 → OBSVTOIN 07-24 09:05
PROVIDERS: ADMIT Internal Medicine; ATTEND Internal Medicine
DX: A41.89 Other specified sepsis (principal); J96.01 Acute respiratory failure with hypoxia; E87.1 Hypo-osmolality and hyponatremia; M80.08XA Age-related osteoporosis with current pathological fracture, vertebra(e), initial encounter for fracture; J20.4 Acute bronchitis due to parainfluenza virus; I10 Essential (primary) hypertension; B97.89 Other viral agents as the cause of diseases classified elsewhere; Z66 Do not resuscitate
CPT/HCPCS: 84484-ER; 97116-GP; 97161-GP; 97165-GO; 97530-GP; G0378; J1650; J1940; J1956; J7512; Q9967

== ENCOUNTER 2018-10-29 18:02 | Emergency (ER) | payer OTHER | END 2018-10-29 20:41 | disposition home or self-care (01) ==